=== PATIENT | female | born 1975 | race African-American/Black ===

== ENCOUNTER 2018-07-21 20:19 | Inpatient (IN) ==
[2018-07-21] MEDS ORDERED: Metoprolol Tartrate 25 MG Tablet PO ONE (20:36)
--- NOTE | 2018-07-21 20:54 | XR ---
EXAM DATE: 07/21/2018 8:50 PM EDT AGE/SEX: 43 years / Female INDICATIONS: Chest pain today. CLINICAL DATA: This is the patient's initial encounter. Patient reports that signs and symptoms have been present for 1 day and indicates a pain score of 8/10. MEDICAL/SURGICAL HISTORY: Hypertension. None. COMPARISON: No prior exams available for comparison. FINDINGS: No acute airspace disease or effusion. Minimal basilar atelectasis. Heart size normal. Mildly tortuou s aorta. CONCLUSION: Minimal basilar atelectasis. No consolidation or effusion. Electronically signed by: Aldo De La Paz MD 07/21/2018 8:53 PM EDT
[2018-07-21 21:19] LABS: Baso # (Auto) 0.1 th/mm3 (0.0-0.2); Baso % (Auto) 1.1 % (0.0-2.0); Eos # (Auto) 0.2 th/mm3 (0.0-0.4); Eos % (Auto) 2.2 % (0.0-4.0); Hematocrit 40.4 % (35.0-46.0); Hemoglobin 14.1 gm/dL (11.6-15.3); Lymph # (Auto) 4.2 th/mm3 (1.0-4.8); Lymph % (Auto) 43.2 % (9.0-44.0); Mean Corpuscular HGB Conc 34.9 % (32.0-36.0); Mean Corpuscular Hemoglobin 29.1 pg (27.0-34.0); Mean Corpuscular Volume 83.4 fL (80.0-100.0); Mean Platelet Volume 9.3 fL (7.0-11.0); Mono # (Auto) 0.9 th/mm3 (0.0-0.9); Mono % (Auto) 9.8 % (0.0-8.0); Neut # (Auto) 4.2 th/mm3 (1.8-7.7); Neut % (Auto) 43.7 % (16.0-70.0); Platelet Count 295 th/mm3 (150-450); Red Blood Count 4.85 mil/mm3 (4.00-5.30); Red Cell Distribution Width 14.6 % (11.6-17.2); White Blood Count 9.6 th/mm3 (4.0-11.0)
--- NOTE | 2018-07-21 21:23 | ED ---
HPI General Chief Complaint: Chest Pain Stated Complaint: chest pain/left side pain Time Seen by Provider: 07/21/18 20:28 Source: patient Mode of arrival: ambulatory Limitations: no limitations History of Present Illness HPI narrative: 43-year-old female with PMH of [place], anxiety depression, fibromyalgia, HTN, bipolar presents the ED for evaluation of 2-hour history of left-sided chest pain. Rated 6/10, constant, onset about 2 hours ago while at rest. Patient states the pain is now encompassing her whole left side. This pain she describes is different from her fibromyalgia pain. She endorses accompanying shortness of breath and nausea. She denies palpitations, diaphoresis. She states that she is compliant with her antihypertensives. She states that she had a cardiac catheter 5 or 6 years ago and took an unknown medication for vasospasm for a period of time. She also states that she recently took a bus to [place] and back. She denies any leg pain. She denies oral contraception use. She denies risk of , endorses tubal ligation. 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 No treatment attempted before arrival. Related Data Home Medications Medication Instructions Recorded Confirmed clonidine HCl 0.2 mg PO BID 05/25/18 07/21/18 duloxetine [Cymbalta] 30 mg PO DAILY 05/25/18 07/21/18 lisinopril 40 mg PO DAILY 05/25/18 07/21/18 quetiapine [Seroquel] 600 mg PO HS 05/25/18 07/21/18 gabapentin 100 mg PO BID 07/21/18 07/21/18 gabapentin 600 mg PO HS 07/21/18 07/21/18 methocarbamol 500 mg PO BID 07/21/18 07/21/18 tramadol 100 mg PO Q4-6H PRN 07/21/18 07/21/18 Previous Rx's Medication Instructions Recorded [id number] 1 cap PO Q4-6H PRN #10 cap 05/26/18 [Fiorinal-Codeine #3] Allergies Allergy/AdvReac Type Severity Reaction Status Date / Time sumatriptan [From Imitrex] Allergy Anaphylaxis Verified 07/21/18 20:32 Review of Systems ROS: all other systems reviewed are negative [facility] Medical History Medical History Anxiety (Acute) Depression (Acute) Fibromyalgia (Acute) HTN (hypertension) (Acute) Hx of bipolar disorder (Acute) Migraines (Acute) Surgical History Surgical History History of appendectomy (Acute) History of cholecystectomy (Acute) History of lumpectomy of right breast (Acute) History of tubal ligation (Acute) Social History Social History Substance History: No History of Abuse Second Hand Smoke Exposure: No Smoking Status: Never smoker How Often Do You Have a Drink Containing Alcohol: Monthly or less Recent Travel in [facility] within the Last 8 Weeks: No Recent Out of Country Travel within the Last 8 Weeks: No Immunization History Tetanus Immunization: >5 Years Exam Narrative Exam Narrative: GENERAL: Well-nourished, well-developed -[place] Citizen female no acute distress. SKIN: Focused skin assessment warm/dry. HEAD: Atraumatic. Normocephalic. EYES: Pupils equal and round. No scleral icterus. No injection or drainage. ENT: No nasal bleeding or discharge. Mucous membranes pink and moist. NECK: Trachea midline. No JVD. CARDIOVASCULAR: Regular rate and rhythm. No murmur appreciated. CHEST: Nontender throughout without deformity or crepitus. No retractions. RESPIRATORY: No accessory muscle use. Clear to auscultation. Breath sounds equal bilaterally. GASTROINTESTINAL: Abdomen soft, non-tender, nondistended. Hepatic and splenic margins not palpable. MUSCULOSKELETAL: No obvious deformities. No clubbing. No cyanosis. No edema. NEUROLOGICAL: Awake and alert. No obvious cranial nerve deficits. Motor grossly within normal limits. Normal speech. PSYCHIATRIC: Appropriate mood and affect; insight and judgment normal. Course Initial Documented Vital Signs Temperature 98.7 F 07/21/18 20:20 Pulse Rate 94 H 07/21/18 20:20 Respiratory Rate 18 07/21/18 20:20 Blood Pressure 237/127 H 07/21/18 20:20 Pulse Oximetry 100 07/21/18 20:20 Last Documented Vital Signs Temperature 98.7 F 07/21/18 20:20 Pulse Rate 79 07/22/18 00:23 Respiratory Rate 17 07/22/18 00:23 Blood Pressure 153/82 H 07/22/18 00:23 Pulse Oximetry 97 07/22/18 00:23 Clinical Decision Support HEART Score Questions History: Slightly suspicious EKG: Normal Age: 45-64 years Risk Factors: 3 or more Risk Factors or Hx of Atherosclerotic Disease Initial Troponin: Normal Limit Heart Score HEART Score: 3 Medical Decision Making JESSICA Attestation JESSICA supervised visit: Yes Attestation: I, Dr. Wallace, have reviewed the advance practice practitioner's documentation and am in agreement, met with the patient face to face, made the diagnosis, and the medical decision making was done by me. *My assessment and Findings: Patient is a 43-year-old female who comes in complaining of chest pain and shortness of breath. Exam shows lungs to be clear to auscultation. Patient is very hypertensive on arrival. She is given nitro with some improvement of her blood pressure. Given a beta-abby. Labs sent show negative troponin. MDM Narrative Medical decision making narrative: 43-year-old female with PMH of HTN, [place] presents to the ED for evaluation of left-sided chest pain with associated shortness of breath. She endorses compliance with her daily antihypertensives. BP 237/127 on presentation. Physical exam reveals no focal neuro deficits, no reproducible tenderness of the chest, no appreciable M/R/G, breath sounds clear and equal bilaterally. IV was established. Patient was administered a dose of metoprolol, aspirin, sublingual nitro x2. On recheck blood pressure still elevated, no improvement of the pain. EKG without acute findings. CXR without acute findings. Troponin negative x1. D-dimer 0.5. Patient was administered 4 mg morphine, still no improvement of the blood pressure. CT the brain without acute findings. She continued to complain of pain and was administered a second dose of 4 mg morphine. The patient was administered 5 mg Lopressor, 10 mg hydralazine, BP 153/82 on recheck. Patient states headache is resolved, chest pain improved. She is allergic to iodine, VQ scan ordered and pending. Plan to admit to rule out ACS and PE. Patient's agreeable to this plan. I spoke with who agrees to accept the patient for observation. Please see medicine notes for disposition. Medical Screen Exam Complete: Yes Emergency Medical Condition: Yes Differential Diagnosis Differential Diagnosis: Hypertensive urgency versus angina versus ACS versus fibromyalgia versus other Lab Data Result diagrams: 07/21/18 20:15 07/21/18 20:15 Lab Results 07/21/18 07/21/18 07/21/18 Range/Units 20:15 20:15 20:15 WBC 9.6 (4.0-11.0) th/mm3 RBC 4.85 (4.00-5.30) mil/mm3 Hgb 14.1 (11.6-15.3) gm/dL Hct 40.4 (35.0-46.0) % MCV 83.4 (80.0-100.0) fL MCH 29.1 (27.0-34.0) pg MCHC 34.9 (32.0-36.0) % RDW 14.6 (11.6-17.2) % Plt Count 295 (150-450) th/mm3 MPV 9.3 (7.0-11.0) fL Neut % (Auto) 43.7 (16.0-70.0) % Lymph % (Auto) 43.2 (9.0-44.0) % [place] % (Auto) 9.8 H (0.0-8.0) % Eos % (Auto) 2.2 (0.0-4.0) % Baso % (Auto) 1.1 (0.0-2.0) % Neut # (Auto) 4.2 (1.8-7.7) th/mm3 Lymph # (Auto) 4.2 (1.0-4.8) th/mm3 [place] # (Auto) 0.9 (0.0-0.9) th/mm3 Eos # (Auto) 0.2 (0.0-0.4) th/mm3 Baso # (Auto) 0.1 (0.0-0.2) th/mm3 WBC Differential . Differential Comment Auto diff final D-Dimer Quant (PE/DVT) 0.50 (0.00-0.50) mg/L FEU Sodium (136-145) meq/L Potassium (3.5-5.1) meq/L Chloride (98-107) meq/L Carbon Dioxide (21.0-32.0) meq/L Anion Gap (5-15) meq/L BUN (7-18) mg/dL Creatinine (0.50-1.00) mg/dL Estimated GFR (>89) mL/min Random Glucose (74-106) mg/dL Calcium (8.5-10.1) mg/dL Total Bilirubin (0.2-1.0) mg/dL AST (15-37) U/L ALT (10-53) U/L Alkaline Phosphatase (45-117) U/L Troponin I (0.02-0.05) ng/mL Total Protein (6.4-8.2) g/dL Albumin (3.4-5.0) g/dL Lipase 55 L (73-393) U/L 07/21/18 Range/Units 20:15 WBC (4.0-11.0) th/mm3 RBC (4.00-5.30) mil/mm3 Hgb (11.6-15.3) gm/dL Hct (35.0-46.0) % MCV (80.0-100.0) fL MCH (27.0-34.0) pg MCHC (32.0-36.0) % RDW (11.6-17.2) % Plt Count (150-450) th/mm3 MPV (7.0-11.0) fL Neut % (Auto) (16.0-70.0) % Lymph % (Auto) (9.0-44.0) % [place] % (Auto) (0.0-8.0) % Eos % (Auto) (0.0-4.0) % Baso % (Auto) (0.0-2.0) % Neut # (Auto) (1.8-7.7) th/mm3 Lymph # (Auto) (1.0-4.8) th/mm3 [place] # (Auto) (0.0-0.9) th/mm3 Eos # (Auto) (0.0-0.4) th/mm3 Baso # (Auto) (0.0-0.2) th/mm3 WBC Differential Differential Comment D-Dimer Quant (PE/DVT) (0.00-0.50) mg/L FEU Sodium 138 (136-145) meq/L Potassium 3.9 (3.5-5.1) meq/L Chloride 104 (98-107) meq/L Carbon Dioxide 25.1 (21.0-32.0) meq/L Anion Gap 9 (5-15) meq/L BUN 13 (7-18) mg/dL Creatinine 0.89 (0.50-1.00) mg/dL Estimated GFR 83 L (>89) mL/min Random Glucose 109 H (74-106) mg/dL Calcium 8.6 (8.5-10.1) mg/dL Total Bilirubin 0.2 (0.2-1.0) mg/dL AST 13 L (15-37) U/L ALT 22 (10-53) U/L Alkaline Phosphatase 67 (45-117) U/L Troponin I Less than 0.02 L (0.02-0.05) ng/mL Total Protein 8.5 H (6.4-8.2) g/dL Albumin 3.8 (3.4-5.0) g/dL Lipase (73-393) U/L Imaging Data Radiologist's impression: Chest X-Ray 07/21/18 20:37 CONCLUSION: Minimal basilar atelectasis. No consolidation or effusion. Head CT 07/21/18 23:07 CONCLUSION: 1. Negative noncontrast CT brain. 2. Mild thickening of the dependent sphenoid sinuses. . Discharge Plan Physicians Team ED Provider: Jennifer Wallace ED Midlevel Provider: Radha Shannon Primary Care Provider: Primary Care Hedy Guerrero Rxs /Orders / Referrals /Forms Prescriptions: No Action clonidine HCl 0.2 mg Tablet 0.2 mg PO BID RF: 0 lisinopril 40 mg Tablet 40 mg PO DAILY RF: 0 quetiapine [Seroquel] 200 mg Tablet 600 mg PO HS RF: 0 duloxetine [Cymbalta] 30 mg Capsule,Delayed Release(Dr/Ec) 30 mg PO DAILY RF: 0 [id number]-[id number]-KOE-caff [Fiorinal-Codeine #3] [id number] mg capsule 1 cap PO Q4-6H PRN (Reason: headache) Qty: 10 RF: 0 gabapentin 100 mg Capsule 100 mg PO BID RF: 0 gabapentin 300 mg Capsule 600 mg PO HS RF: 0 methocarbamol 500 mg Tablet 500 mg PO BID RF: 0 tramadol 100 mg Capsule,Er Biphase 24 Hr 25-75 100 mg PO Q4-6H PRN (Reason: Pain) RF: 0 Discharge Interventions Interventions: Vital Signs Last Done: 07/22/18 00:23 Status ED Status: Pending Admission
[2018-07-21 21:26] LABS: Albumin 3.8 g/dL (3.4-5.0); Anion Gap 9 meq/L (5-15); Aspartate Aminotransferase 13 U/L (15-37); Blood Urea Nitrogen 13 mg/dL (7-18); Calcium 8.6 mg/dL (8.5-10.1); Carbon Dioxide 25.1 meq/L (21.0-32.0); Chloride 104 meq/L (98-107); Glomerular Filtration Rate 83 mL/min (>89); Glucose,Random 109 mg/dL (74-106); Potassium 3.9 meq/L (3.5-5.1); Sodium 138 meq/L (136-145)
[2018-07-21 21:31] LABS: Alanine Aminotransferase 22 U/L (10-53); Alkaline Phosphatase 67 U/L (45-117); Total Protein 8.5 g/dL (6.4-8.2)
[2018-07-21] MEDS ORDERED: Morphine Inj 4 MG/ML Vial IV.PUSH ONE ×2 (22:10→23:37)
[2018-07-21] MEDS ORDERED: niCARdipine Inj 25 MG in Sodium Chlor 0.9% Inj 240 ML IV.CONT PRN (23:10)
--- NOTE | 2018-07-21 23:38 | CT ---
EXAM DATE: 07/21/2018 11:29 PM EDT AGE/SEX: 43 years / Female INDICATIONS: Cephalgia. CLINICAL DATA: This is the patient's initial encounter. Patient reports that signs and symptoms have been present for 1 day and indicates a pain score of 6/10. MEDICAL/SURGICAL HISTORY: Hypertension. Tubal ligation. RADIATION DOSE: 56.35 CTDI (mGy) COMPARISON: [facility], CT HEAD W/O CONTRAST, 05/26/2018. . TECHNIQUE: CT of the head without contrast. Using automated exposure control and adjustment of the mA and/or kV according to patient size, radiation dose was kept as low as reasonably achievable to ob tain optimal diagnostic quality images. DICOM format image data is available electronically for revi ew and comparison. FINDINGS: Cerebrum: The ventricles are normal for age. No evidence of midline shift, mass lesion, hemorrhage or acute infarction. No extraaxial fluid collections are seen. Posterior Fossa: The cerebellum and brainstem are intact. The 4th ventricle is midline. The cerebe llopontine angle is unremarkable. Extracranial: The visualized portion of the orbits is intact. There is mild thickening of the depend ent sphenoid sinuses suggesting either a minimal amount of fluid or thickening. Skull: The calvaria is intact. No evidence of skull fracture. CONCLUSION: 1. Negative noncontrast CT brain. 2. Mild thickening of the dependent sphenoid sinuses. . Electronically signed by: Bayron Morris MD 07/21/2018 11:36 PM EDT
[2018-07-21] MEDS: niCARdipine Inj 25 MG in Sodium Chlor 0.9% Inj 240 ML IV.CONT STA (23:43)
--- NOTE | 2018-07-21 23:48 | P.HPIM ---
History of Present Illness Primary Care Physician: No Primary Care Physician History of Present Illness: This is a 43-year-old female with a PMH of Anxiety, Depression, Fibromyalgia, Bipolar Disorder and HTN who presented to the ER with complaints of chest pain x2 hrs prior to arrival. Notes similar symptoms in 2011, at that time underwent Cardiac Cath and told she had "spasm", reports intermittent episodes of chest pain throughout the years, but now persistent over the past few hours. Denies fever, chills, cough or SOB. No sick contacts. Pain is substernal, moderate to severe, 9/10, non-radiating, associated w/ frontal headache. On arrival, noted to be significantly hypertensive w/ BP 237/127, HR 94. On Clonidine 0.2mg bid and Lisinopril 40mg qd, reports compliance w/ medications, HTN normally well controlled in the 140's systolic. S/p Metoprolol 25mg PO x1, NTG x2 and Morphine in ER w/ minimal improvement, BP 249/121, HR 59. CBC unremarkable. Chemistry essentially unremarkable except for GFR 83. Troponin negative. D-dimer 0.50. CXR with no acute findings. CT Head negative. - Diagnosis (1) Chest pain (2) Hypertensive urgency Review of Systems PAST FAMILY HISTORY: Reviewed. No h/o DM or CAD All other systems reviewed negative except as stated in HPI [facility] - History History Provided By: Patient - Medical History Medical History: Medical History (Last Reviewed 07/21/18 @ 21:23 by JONI Maxwell) Migraines Anxiety Depression Fibromyalgia HTN (hypertension) Hx of bipolar disorder - Surgical History Surgical History: Surgical History (Last Reviewed 07/21/18 @ 21:23 by JONI Maxwell) History of appendectomy History of cholecystectomy History of lumpectomy of right breast History of tubal ligation - Tobacco History Second Hand Smoke Exposure: No Tobacco Use In Past 30 Days: No Smoking Status: Never smoker - Alcohol History How Often Do You Have a Drink Containing Alcohol: Monthly or less - Substance Use History Substance History: No History of Abuse - Travel History Recent Travel in the [place] Within the Last 8 Weeks: No Recent Travel Out of the Country Within the Last 8 Weeks: No - Immunization History Tetanus Immunization: >5 Years Medications and Allergies Active Medications: Active Medications Nicardipine HCl 25 mg/ Sodium (Chloride) 250 mls @ 50 mls/hr IV.CONT TITRATE STA; Protocol Stop: 07/22/18 04:31 Last Admin: 07/21/18 23:43 Dose: 5 mg/hr, 50 mls/hr Sodium Chloride (Ns Flush) 2 ml IV.FLUSH UNSCH PRN PRN Reason: FLUSH AFTER USING IV ACCESS Allergies Allergy/AdvReac Type Severity Reaction Status Date / Time sumatriptan [From Imitrex] Allergy Anaphylaxis Verified 07/21/18 20:32 Home Medications Medication Instructions Recorded Confirmed Type clonidine HCl 0.2 mg PO BID 05/25/18 07/21/18 History duloxetine [Cymbalta] 30 mg PO DAILY 05/25/18 07/21/18 History lisinopril 40 mg PO DAILY 05/25/18 07/21/18 History quetiapine [Seroquel] 600 mg PO HS 05/25/18 07/21/18 History gabapentin 100 mg PO BID 07/21/18 07/21/18 History gabapentin 600 mg PO HS 07/21/18 07/21/18 History methocarbamol 500 mg PO BID 07/21/18 07/21/18 History tramadol 100 mg PO Q4-6H PRN 07/21/18 07/21/18 History Exam Vital signs: Vital Signs 07/21/18 20:20 07/21/18 20:31 07/21/18 21:05 Temperature 98.7 F Pulse Rate 94 H 97 H 76 Respiratory Rate 18 14 17 Blood Pressure 237/127 H 219/128 H 178/106 H Pulse Oximetry 100 99 98 07/21/18 21:52 07/21/18 22:00 07/21/18 23:14 Temperature Pulse Rate 73 59 L Respiratory Rate 14 17 Blood Pressure 189/124 H 249/121 H Pulse Oximetry 98 99 100 Intake & Output 07/21/18 07/21/18 07/22/18 06:59 18:59 06:59 Weight 78.925 kg Narrative: PE: GENERAL: Extremely pleasant young black female in no acute distress. SKIN: Focused skin assessment warm and dry. HEENT: PERRLA, EOMI. No scleral icterus or conjunctival pallor. No lid lag or facial droop. CARDIOVASCULAR: Regular rate and rhythm. No obvious murmurs to auscultation. No chest tenderness to palpation. RESPIRATORY: No obvious rhonchi or wheezing. Clear to auscultation. Breath sounds equal bilaterally. GASTROINTESTINAL: Abdomen soft, non-tender, nondistended. BS normal. MUSCULOSKELETAL: Extremities without clubbing, cyanosis, or edema. No obvious deformities. NEUROLOGICAL: Awake, alert and oriented x4. No focal neurologic deficits. Moving both upper and lower extremities spontaneously. PSYCHIATRIC: Appropriate mood and affect. Insight and judgment normal. Results - Labs CBC & Chem 7: 07/21/18 20:15 07/21/18 20:15 Labs: Short CBC 07/21/18 Range/Units 20:15 WBC 9.6 (4.0-11.0) th/mm3 Hgb 14.1 (11.6-15.3) gm/dL Hct 40.4 (35.0-46.0) % Plt Count 295 (150-450) th/mm3 BMP 07/21/18 20:15 Sodium 138 Potassium 3.9 Chloride 104 Carbon Dioxide 25.1 BUN 13 Creatinine 0.89 Calcium 8.6 Cardiac Enzymes 07/21/18 Range/Units 20:15 Troponin I Less than 0.02 L (0.02-0.05) ng/mL Liver Function 07/21/18 Range/Units 20:15 Total Bilirubin 0.2 (0.2-1.0) mg/dL AST 13 L (15-37) U/L ALT 22 (10-53) U/L Alkaline Phosphatase 67 (45-117) U/L Albumin 3.8 (3.4-5.0) g/dL - Imaging Impressions Chest X-Ray 07/21/18 20:37 CONCLUSION: Minimal basilar atelectasis. No consolidation or effusion. Head CT 07/21/18 23:07 CONCLUSION: 1. Negative noncontrast CT brain. 2. Mild thickening of the dependent sphenoid sinuses. . Caprini VTE Risk Assessment Caprini VTE Risk Assessment: No/Low Risk (score <= 1) Caprini Risk Assessment Model: Point Value = 1 Point Value = 2 Point Value = 3 Point Value = 5 Age 41-60 Minor surgery BMI > 25 kg/m2 Swollen legs Varicose veins or History of unexplained or recurrent spontaneous Oral contraceptives or hormone replacement Sepsis (< 1 month) Serious lung disease, including pneumonia (< 1 month) Abnormal pulmonary function Acute myocardial infarction Congestive heart failure (< 1 month) History of inflammatory bowel disease Medical patient at bed rest Age 61-74 Arthroscopic surgery Major open surgery (> 45 min) Laparoscopic surgery (> 45 min) Malignancy Confined to bed (> 72 hours) Immobilizing plaster cast Central venous access Age >= 75 History of VTE Family history of VTE Factor V Leiden Prothrombin [id number] Lupus anticoagulant Anticardiolipin antibodies Elevated serum homocysteine Heparin-induced thrombocytopenia Other congenital or acquired thrombophilia Stroke (< 1 month) Elective arthroplasty Hip, pelvis, or leg fracture Acute spinal cord injury (< 1 month) Prophylaxis Regimen: Total Risk Factor Score Risk Level Prophylaxis Regimen 0-1 Low Early ambulation 2 Moderate Order ONE of the following: *Sequential Compression Device (SCD) *Heparin 5000 units SQ BID 3-4 Higher Order ONE of the following medications: *Heparin 5000 units SQ TID *Enoxaparin/Lovenox 40 mg SQ daily (WT < 150 kg, CrCl > 30 mL/min) *Enoxaparin/Lovenox 30 mg SQ daily (WT < 150 kg, CrCl > 10-29 mL/min) *Enoxaparin/Lovenox 30 mg SQ BID (WT < 150 kg, CrCl > 30 mL/min) AND/OR *Sequential Compression Device (SCD) 5 or more Highest Order ONE of the following medications: *Heparin 5000 units SQ TID (Preferred with Epidurals) *Enoxaparin/Lovenox 40 mg SQ daily (WT < 150 kg, CrCl > 30 mL/min) *Enoxaparin/Lovenox 30 mg SQ daily (WT < 150 kg, CrCl > 10-29 mL/min) *Enoxaparin/Lovenox 30 mg SQ BID (WT < 150 kg, CrCl > 30 mL/min) AND *Sequential Compression Device (SCD) Assessment and Plan - Assessment (1) Chest pain Code(s): R07.9 - Chest pain, unspecified Status: Acute (2) Hypertensive urgency Code(s): I16.0 - Hypertensive urgency Status: Acute - Plan A/P: 1. Hypertensive Urgency: BP 230's on arrival, on Clonidine 0.2mg bid and Lisinopril 40mg qd, compliant w/ medications. S/p Metoprolol 25mg po x1, NTG x2 and Morphine w/ minimal improvement, recommend to hold Cardene for now, s/p IV Hydralazine/Lopressor w/ significant improvement in BP, currently 150's, pt feeling much better. Resume home medications, monitor BP closely, antihypertensives as needed for BP >180. 2. Chest Pain: likely secondary to above, s/p Cardiac Cath for "small myocardial infarct" in 2011, told she had "spasm", does not know if she had stent placed. Initial trop negative, check serial cardiac enzymes, lipid profile/Hgb A1c, start ASA/Statin. Consult Cardiology if needed. 3. DVT Prophylaxis: SCD/Teds 4. Social work for d/c planning as needed. 5. Case discussed w/ ER physician at length, labs/records/imaging reviewed by me.
[2018-07-21] MEDS ORDERED: hydrALAZINE HCl Inj 20 MG/ML Vial IV.PUSH ONE (23:50)
[2018-07-21] MEDS ORDERED: Metoprolol Inj 5 MG/5 ML Vial IV.PUSH STA (23:50)
[2018-07-22] MEDS: niCARdipine Inj 25 MG in Sodium Chlor 0.9% Inj 240 ML IV.CONT STA (00:33)
[2018-07-22] MEDS ORDERED: Bisacodyl 10 MG Supp RECTAL PRN (00:57)
[2018-07-22] MEDS ORDERED: Acetaminophen 325 MG Tablet PO PRN (00:57)
[2018-07-22] MEDS: hydrALAZINE HCl Inj 20 MG/ML Vial IV.PUSH PRN ×3 (03:45→17:40)
[2018-07-22] MEDS: Morphine Inj 4 MG/ML Vial IV.PUSH PRN ×2 (04:45→13:37)
[2018-07-22] MEDS: Lisinopril 20 MG Tablet PO SCH (08:21)
[2018-07-22] MEDS: Gabapentin 100 MG Capsule PO SCH ×2 (08:21→20:59)
[2018-07-22] MEDS: Senna/Docusate Sodium 8.6/50 MG Tablet PO SCH ×2 (08:23→20:59)
[2018-07-22 10:22] LABS: Cholesterol 219 mg/dL (120-200)
[2018-07-22 10:25] LABS: Chol/HDL Ratio 2.94 Ratio; HDL Cholesterol 74.4 mg/dL (40.0-60.0); LDL Cholesterol,Calculated 122 mg/dL (0-99); Triglycerides 111 mg/dL (42-150)
--- NOTE | 2018-07-22 10:27 | NM ---
EXAM DATE: 07/22/2018 10:23 AM EDT AGE/SEX: 43 years / Female INDICATIONS: Left chest pain with dyspnea, diaphoresis, nausea and vomiting. CLINICAL DATA: This is the patient's initial encounter. Patient reports that signs and symptoms have been present for 1 day and indicates a pain score of 6/10. MEDICAL/SURGICAL HISTORY: Myocardial infarction. Hypertension. Appendectomy. Cholecystectomy. Tubal ligation. COMPARISON: [facility], CHEST 1V SINGLE AP, 07/21/2018. . DOSE: 0.8 mCi Tc99m DTPA aerosol 8.7 mCi Tc99m MAA IV TECHNIQUE: Following five minutes of tidal breathing of DTPA aerosol, planar images of the lungs wer e performed in eight projections. The patient was then injected with MAA, and eight-view perfusion s can was performed. FINDINGS: There is a homogeneous pattern of aerosol delivery to the periphery of both lungs. No focal ventilat ory defects are seen. The perfusion lung scan demonstrates a homogenous pattern of uptake in both lungs. No segmental or s ubsegmental defects are seen. CONCLUSION: 1. Negative examination. Electronically signed by: Aldo De La Paz MD 07/22/2018 10:26 AM EDT
--- NOTE | 2018-07-22 15:30 | P.PN ---
Subjective Interval history: This is a pleasant 43 y/o Female with Anxiety disorder, depression, Fibromyalgia , Bipolar disorder, Hypertension, who came to ER with Chest pain her Troponin has been stable while this hospitalization her V/Q scan negative, but she continue with Chest pain will ask for cardiology consult, she had Cardiac Cath in the past, she was told she had a spasm, On arrival, noted to be significantly hypertensive w/ BP 237/127, HR 94. On Clonidine 0.2mg bid and Lisinopril 40mg qd, reports compliance w/ medications, at this time continue with Chest pain, Hypertensive Emergency improving with Vasotec IV. asked for audio specialist consult, started on Carafate and Famotidine. continue liquid diet. Physical Exam Vital signs: Vital Signs 07/21/18 20:20 07/21/18 20:31 07/21/18 21:05 Temperature 98.7 F Pulse Rate 94 H 97 H 76 Respiratory Rate 18 14 17 Blood Pressure 237/127 H 219/128 H 178/106 H Pulse Oximetry 100 99 98 07/21/18 21:52 07/21/18 22:00 07/21/18 23:14 Temperature Pulse Rate 73 59 L Respiratory Rate 14 17 Blood Pressure 189/124 H 249/121 H Pulse Oximetry 98 99 100 07/21/18 23:45 07/22/18 00:23 07/22/18 01:07 Temperature Pulse Rate 81 79 78 Respiratory Rate 17 17 14 Blood Pressure 191/107 H 153/82 H 164/97 H Pulse Oximetry 99 97 100 07/22/18 02:00 07/22/18 02:15 07/22/18 03:00 Temperature 98.2 F Pulse Rate 75 72 78 Respiratory Rate 18 Blood Pressure 191/112 H Pulse Oximetry 100 07/22/18 04:00 07/22/18 04:10 07/22/18 04:48 Temperature 98.2 F Pulse Rate 90 93 H Respiratory Rate 18 18 Blood Pressure 181/110 H 148/88 H Pulse Oximetry 100 07/22/18 05:00 07/22/18 06:00 07/22/18 07:00 Temperature Pulse Rate 94 H 81 93 H Respiratory Rate Blood Pressure Pulse Oximetry 07/22/18 08:00 07/22/18 09:00 07/22/18 09:05 Temperature 98.3 F Pulse Rate 104 H 86 Respiratory Rate 18 18 Blood Pressure 141/95 H Pulse Oximetry 97 07/22/18 10:00 07/22/18 11:00 07/22/18 12:00 Temperature 98.3 F Pulse Rate 94 H 89 99 H Respiratory Rate 18 Blood Pressure 172/107 H Pulse Oximetry 96 07/22/18 13:00 07/22/18 13:32 07/22/18 13:33 Temperature Pulse Rate 140 H Respiratory Rate Blood Pressure 178/113 H 198/114 H Pulse Oximetry 07/22/18 13:34 07/22/18 13:39 07/22/18 13:44 Temperature Pulse Rate Respiratory Rate Blood Pressure 169/110 H 166/114 H 194/116 H Pulse Oximetry 07/22/18 13:45 07/22/18 13:48 07/22/18 13:50 Temperature Pulse Rate Respiratory Rate 20 Blood Pressure 197/108 H 168/95 H Pulse Oximetry 07/22/18 13:55 07/22/18 14:00 07/22/18 14:54 Temperature Pulse Rate 100 H Respiratory Rate Blood Pressure 159/94 H Pulse Oximetry 96 Intake & Output 07/21/18 07/22/18 07/22/18 18:59 06:59 18:59 Intake Total 240 / 240 Output Total 1600 / 1600 Balance -1360 / -1360 Weight 72.6 kg Intake: Oral 240 / 240 Output: Urine 1600 / 1600 Other: Date of Last Bowel Movement 07/21/18 Weight On Admission 75.75 kg Narrative: GENERAL: Moderate distress due to chest pain and vomit. SKIN: Focused skin assessment warm and dry. HEENT: PERRLA, EOMI. No scleral icterus or conjunctival pallor. No lid lag or facial droop. CARDIOVASCULAR: Regular rate and rhythm. No obvious murmurs to auscultation. No chest tenderness to palpation. RESPIRATORY: No obvious rhonchi or wheezing. Clear to auscultation. Breath sounds equal bilaterally. GASTROINTESTINAL: Abdomen soft, non-tender, nondistended. BS normal. MUSCULOSKELETAL: Extremities without clubbing, cyanosis, or edema. No obvious deformities. NEUROLOGICAL: Awake, alert and oriented x4. No focal neurologic deficits. Moving both upper and lower extremities spontaneously. PSYCHIATRIC: Appropriate mood and affect. Insight and judgment normal. Results - Labs CBC & Chem 7: 07/21/18 20:15 10/25/18 20:15 Laboratory Results - last 24 hr 07/21/18 07/21/18 07/21/18 20:15 20:15 20:15 WBC 9.6 RBC 4.85 Hgb 14.1 Hct 40.4 MCV 83.4 MCH 29.1 MCHC 34.9 RDW 14.6 Plt Count 295 MPV 9.3 Neut % (Auto) 43.7 Lymph % (Auto) 43.2 Haakon % (Auto) 9.8 H Eos % (Auto) 2.2 Baso % (Auto) 1.1 Neut # (Auto) 4.2 Lymph # (Auto) 4.2 Haakon # (Auto) 0.9 Eos # (Auto) 0.2 Baso # (Auto) 0.1 WBC Differential . Differential Comment Auto diff final D-Dimer Quant (PE/DVT) 0.50 Sodium Potassium Chloride Carbon Dioxide Anion Gap BUN Creatinine Estimated GFR Random Glucose Calcium Total Bilirubin AST ALT Alkaline Phosphatase Troponin I Total Protein Albumin Triglycerides Cholesterol LDL Cholesterol, Calc HDL Cholesterol Cholesterol/HDL Ratio Lipase 55 L 07/21/18 07/22/18 07/22/18 20:15 01:42 09:30 WBC RBC Hgb Hct MCV MCH MCHC RDW Plt Count MPV Neut % (Auto) Lymph % (Auto) Haakon % (Auto) Eos % (Auto) Baso % (Auto) Neut # (Auto) Lymph # (Auto) Haakon # (Auto) Eos # (Auto) Baso # (Auto) WBC Differential Differential Comment D-Dimer Quant (PE/DVT) Sodium 138 Potassium 3.9 Chloride 104 Carbon Dioxide 25.1 Anion Gap 9 BUN 13 Creatinine 0.89 Estimated GFR 83 L Random Glucose 109 H Calcium 8.6 Total Bilirubin 0.2 AST 13 L ALT 22 Alkaline Phosphatase 67 Troponin I Less than 0.02 L Less than 0.02 L Less than 0.02 L Total Protein 8.5 H Albumin 3.8 Triglycerides 111 Cholesterol 219 H LDL Cholesterol, Calc 122 H HDL Cholesterol 74.4 H Cholesterol/HDL Ratio 2.94 Lipase - Imaging Impressions Chest X-Ray 07/21/18 20:37 CONCLUSION: Minimal basilar atelectasis. No consolidation or effusion. Head CT 07/21/18 23:07 CONCLUSION: 1. Negative noncontrast CT brain. 2. Mild thickening of the dependent sphenoid sinuses. . Pulmonary Perfusion Imaging 07/22/18 23:31 CONCLUSION: 1. Negative examination. - Procedures None Assessment and Plan - Assessment (1) Chest pain Code(s): R07.9 - Chest pain, unspecified Status: Acute (2) Hypertensive urgency Code(s): I16.0 - Hypertensive urgency Status: Acute - Plan 1. Hypertensive Urgency: BP 230's on arrival, on Clonidine 0.2mg bid and Lisinopril 40mg qd, compliant w/ medications. S/p Metoprolol 25mg po x1, NTG x2 and Morphine w/ minimal improvement, recommend to hold Cardene for now, s/p IV Hydralazine/Lopressor w/ significant improvement in BP, currently 150's, pt feeling much better. recommended to continue Home medicines. at this time added Vasotec she was vomiting earlier I think was not receiving her dosages of medicines. on Hydralazine and Vasotec PRN. 2. Atypical Chest pain, s/p Cardiac Cath for "small myocardial infarct" in 2011 , told she had "spasm", does not know if she had stent placed. troponin negative all sets, V/Q scan negative, consulted audio specialist. 3. Acute Gastritis suspected Famotidine and Carafate. DVT Prophylaxis: Heparin Code Status: Full code. Discussed Condition With: Patient and nurse Miss Cotto present with me all the time while I examined the patient. Discharge Planning: not yet cleared for discharge.
[2018-07-22] MEDS: Famotidine PF Inj 20 MG/2 ML Vial IV.PUSH SCH (15:35)
[2018-07-22] MEDS: Methocarbamol 500 MG Tablet PO SCH ×2 (15:35→21:01)
[2018-07-22] MEDS: Sucralfate 1 GM Tablet PO SCH ×2 (16:51→20:59)
[2018-07-22 17:30] LABS: Hemoglobin A1c 5.5 % (4.3-6.0)
[2018-07-22] MEDS: Sod Chloride 0.9% Inj 1,000 ML IV.SIG SCH (18:54)
[2018-07-22] MEDS: Gabapentin 300 MG Capsule PO SCH (20:59)
[2018-07-23] MEDS: Famotidine PF Inj 20 MG/2 ML Vial IV.PUSH SCH ×2 (03:18→15:34)
[2018-07-23] MEDS: Sod Chloride 0.9% Inj 1,000 ML IV.SIG SCH ×2 (04:58→14:19)
[2018-07-23 07:53] LABS: Albumin 3.4 g/dL (3.4-5.0); Anion Gap 9 meq/L (5-15); Aspartate Aminotransferase 25 U/L (15-37); Blood Urea Nitrogen 17 mg/dL (7-18); Calcium 8.6 mg/dL (8.5-10.1); Chloride 104 meq/L (98-107); Glomerular Filtration Rate 62 mL/min (>89); Glucose,Random 107 mg/dL (74-106); Potassium 3.8 meq/L (3.5-5.1); Sodium 137 meq/L (136-145)
[2018-07-23 07:56] LABS: Alanine Aminotransferase 43 U/L (10-53); Alkaline Phosphatase 64 U/L (45-117); Total Protein 7.5 g/dL (6.4-8.2)
[2018-07-23] MEDS: Methocarbamol 500 MG Tablet PO SCH ×2 (08:17→20:34)
[2018-07-23] MEDS: Sucralfate 1 GM Tablet PO SCH ×4 (08:17→20:33)
[2018-07-23] MEDS: Lisinopril 20 MG Tablet PO SCH (08:17)
[2018-07-23] MEDS: Senna/Docusate Sodium 8.6/50 MG Tablet PO SCH ×2 (08:18→20:33)
[2018-07-23] MEDS: Gabapentin 100 MG Capsule PO SCH ×2 (08:18→20:34)
--- NOTE | 2018-07-23 09:10 | P.PN ---
Subjective Interval history: This is a pleasant 43 y/o Female with Anxiety disorder, depression, Fibromyalgia , Bipolar disorder, Hypertension, who came to ER with Chest pain her Troponin has been stable while this hospitalization her V/Q scan negative, but she continue with Chest pain will ask for cardiology consult, she had Cardiac Cath in the past, she was told she had a spasm, On arrival, noted to be significantly hypertensive w/ BP 237/127, HR 94. On Clonidine 0.2mg bid and Lisinopril 40mg qd, reports compliance w/ medications, at this time continue with Chest pain, Hypertensive Emergency improving with Vasotec IV. asked for equipment application specialist consult, started on Carafate and Famotidine. continue liquid diet. 07/23: Seen in her bedroom, she was already evaluated by equipment application specialist not impressed about the possibility or Cardiac disease but asked for Stress test. Seen by GI specialist due to nausea and vomit not improving, studying for probable EGD in am tomorrow. Physical Exam Vital signs: Vital Signs 07/22/18 10:00 07/22/18 11:00 07/22/18 12:00 Temperature 98.3 F Pulse Rate 94 H 89 99 H Respiratory Rate 18 Blood Pressure 172/107 H Pulse Oximetry 96 07/22/18 13:00 07/22/18 13:32 07/22/18 13:33 Temperature Pulse Rate 140 H Respiratory Rate Blood Pressure 178/113 H 198/114 H Pulse Oximetry 07/22/18 13:34 07/22/18 13:39 07/22/18 13:44 Temperature Pulse Rate Respiratory Rate Blood Pressure 169/110 H 166/114 H 194/116 H Pulse Oximetry 07/22/18 13:45 07/22/18 13:48 07/22/18 13:50 Temperature Pulse Rate Respiratory Rate 20 Blood Pressure 197/108 H 168/95 H Pulse Oximetry 07/22/18 13:55 07/22/18 14:00 07/22/18 14:54 Temperature Pulse Rate 100 H Respiratory Rate Blood Pressure 159/94 H Pulse Oximetry 96 07/22/18 15:00 07/22/18 16:00 07/22/18 17:00 Temperature 98.2 F Pulse Rate 92 H 91 H 103 H Respiratory Rate 18 Blood Pressure 147/93 H Pulse Oximetry 97 07/22/18 17:38 07/22/18 18:00 07/22/18 18:23 Temperature Pulse Rate 107 H Respiratory Rate Blood Pressure 160/110 H 178/107 H Pulse Oximetry 07/22/18 19:00 07/22/18 20:00 07/22/18 21:00 Temperature 98.2 F Pulse Rate 90 99 H 95 H Respiratory Rate 18 Blood Pressure 154/93 H Pulse Oximetry 97 07/22/18 22:00 07/22/18 23:00 07/23/18 00:00 Temperature 99 F Pulse Rate 96 H 93 H 95 H Respiratory Rate 18 Blood Pressure 126/66 Pulse Oximetry 96 07/23/18 01:00 07/23/18 02:00 07/23/18 03:00 Temperature Pulse Rate 90 88 93 H Respiratory Rate Blood Pressure Pulse Oximetry 07/23/18 03:53 07/23/18 03:54 07/23/18 05:00 Temperature 98.2 F Pulse Rate 89 89 88 Respiratory Rate 18 Blood Pressure 117/77 Pulse Oximetry 97 07/23/18 06:00 07/23/18 07:00 07/23/18 07:28 Temperature Pulse Rate 91 H 76 77 Respiratory Rate Blood Pressure Pulse Oximetry Intake & Output 07/22/18 07/23/18 07/23/18 18:59 06:59 18:59 Intake Total 250 / 250 1250 / 1250 Output Total 800 / 800 Balance 250 / 250 450 / 450 Weight 71.9 kg Intake: IV 1000 / 1000 NS Inj 1,000 ML @ 100 mls/hr IV 1000 / 1000 .SIG .Q10H DANIA Rx#:[id number] Oral 250 / 250 250 / 250 Output: Urine 800 / 800 Other: # Voids 1 # Bowel Movements 0 Narrative: GENERAL: No acute distress. SKIN: Focused skin assessment warm and dry. HEENT: PERRLA, EOMI. No scleral icterus or conjunctival pallor. No lid lag or facial droop. CARDIOVASCULAR: Regular rate and rhythm. No obvious murmurs to auscultation. No chest tenderness to palpation. RESPIRATORY: No obvious rhonchi or wheezing. Clear to auscultation. Breath sounds equal bilaterally. GASTROINTESTINAL: Abdomen soft, non-tender, nondistended. BS normal. MUSCULOSKELETAL: Extremities without clubbing, cyanosis, or edema. No obvious deformities. NEUROLOGICAL: Awake, alert and oriented x4. No focal neurologic deficits. Moving both upper and lower extremities spontaneously. PSYCHIATRIC: Appropriate mood and affect. Insight and judgment normal. Results - Labs CBC & Chem 7: 07/23/18 09:28 07/23/18 06:25 Laboratory Results - last 24 hr 07/22/18 07/22/18 07/23/18 09:30 09:30 06:25 Sodium 137 Potassium 3.8 Chloride 104 Carbon Dioxide 24.0 Anion Gap 9 BUN 17 Creatinine 1.14 H Estimated GFR 62 L Random Glucose 107 H Hemoglobin A1c 5.5 Calcium 8.6 Total Bilirubin 0.6 AST 25 ALT 43 Alkaline Phosphatase 64 Troponin I Less than 0.02 L Total Protein 7.5 D Albumin 3.4 Triglycerides 111 Cholesterol 219 H LDL Cholesterol, Calc 122 H HDL Cholesterol 74.4 H Cholesterol/HDL Ratio 2.94 - Imaging Impressions Pulmonary Perfusion Imaging 07/22/18 23:31 CONCLUSION: 1. Negative examination. - Procedures None Assessment and Plan - Assessment (1) Chest pain Code(s): R07.9 - Chest pain, unspecified Status: Acute (2) Hypertensive urgency Code(s): I16.0 - Hypertensive urgency Status: Acute - Plan 1. Hypertensive Urgency: BP 230's on arrival, on Clonidine 0.2mg bid and Lisinopril 40mg qd, compliant w/ medications. S/p Metoprolol 25mg po x1, NTG x2 and Morphine w/ minimal improvement, recommend to hold Cardene for now, s/p IV Hydralazine/Lopressor w/ significant improvement in BP, currently 150's, pt feeling much better. recommended to continue Home medicines. at this time added Vasotec she was vomiting earlier I think was not receiving her dosages of medicines. on Hydralazine and Vasotec PRN. Improving. 2. Atypical Chest pain, s/p Cardiac Cath for "small myocardial infarct" in 2011 , told she had "spasm", does not know if she had stent placed. troponin negative all sets, V/Q scan negative, equipment application specialist following not impressed for Cardiac disease but asked for Stress test 3. Acute Gastritis suspected Famotidine and Carafate. probable EGD by GI specialist 4. Anxiety and Depression, Bipolar disorder asked for Psychiatry specialist consult due to Lethargic condition during the afternoon removed Ativan DVT Prophylaxis: Heparin Code Status: Full Code. Discussed Condition With: Patient and Nurse Miss Grover Discharge Planning: not yet cleared for discharge.
[2018-07-23 10:10] LABS: Baso % (Auto) 0.5 % (0.0-2.0); Eos # (Auto) 0.1 th/mm3 (0.0-0.4); Eos % (Auto) 1.1 % (0.0-4.0); Hematocrit 37.3 % (35.0-46.0); Lymph # (Auto) 2.6 th/mm3 (1.0-4.8); Lymph % (Auto) 41.3 % (9.0-44.0); Mean Corpuscular HGB Conc 34.8 % (32.0-36.0); Mean Corpuscular Hemoglobin 28.9 pg (27.0-34.0); Mean Corpuscular Volume 83.2 fL (80.0-100.0); Mean Platelet Volume 8.7 fL (7.0-11.0); Mono # (Auto) 0.5 th/mm3 (0.0-0.9); Mono % (Auto) 8.2 % (0.0-8.0); Neut # (Auto) 3.1 th/mm3 (1.8-7.7); Neut % (Auto) 48.9 % (16.0-70.0); Platelet Count 283 th/mm3 (150-450); Red Blood Count 4.49 mil/mm3 (4.00-5.30); Red Cell Distribution Width 14.8 % (11.6-17.2); White Blood Count 6.4 th/mm3 (4.0-11.0)
--- NOTE | 2018-07-23 11:02 | MB ---
cc: Elvia Thompson MD DATE: 07/23/2018 REASON FOR CONSULTATION: Chest pain. HISTORY OF PRESENT ILLNESS: Ms. Ascencio is a 43-year-old lady who does have a history of bipolar disorder, fibromyalgia, anxiety, and hypertension. She also reports a history of coronary spasm diagnosed by a cardiac catheterization back [place]. She indicates that she did not have any stress testing prior to the cardiac catheterization. She also indicates that she was placed on some medication for that. Since that time, she has done fairly well. Yesterday, she had some nausea, vomiting, a severe migraine and subsequent chest pain. On arrival, her systolic blood pressure was up over 200. She reports her blood pressure is normally well controlled and she is not sure if the spike was secondary to her severe head pain. Today, she is chest pain free. She still does have a low-level headache at this point. PAST MEDICAL HISTORY: As per the HPI, also including anxiety, depression, fibromyalgia. PAST SURGICAL HISTORY: Includes appendectomy, cholecystectomy, lumpectomy, tubal ligation. SOCIAL HISTORY: The patient does not smoke. REVIEW OF SYSTEMS: Except as mentioned in the HPI, all 12 systems are negative. PHYSICAL EXAMINATION: CURRENT VITAL SIGNS: 98.2, 18, 117/77. GENERAL: She is a well-appearing female, who is in no apparent distress. NECK: Free from JVD. LUNGS: Bilaterally clear to auscultation. CARDIOVASCULAR: She has a normal S1 and S2. I did not appreciate any murmurs, rubs or gallops. ABDOMEN: Soft. EXTREMITIES: Free from edema. LABORATORY DATA: Significant for a D-dimer of 0.5. Her serial troponins are less than 0.02. V/Q scan from 07/22/2018 was negative for PE. EKG shows normal sinus rhythm. IMPRESSION: 1. Atypical chest pain. The patient certainly has a history of the same with coronary spasm diagnosed by catheterization in 2011. She is not on appropriate therapy for coronary spasm, which typically includes calcium channel blockers such as Cardizem. Additionally, it has been several years since her catheterization. We do not have access to see if there was any minor coronary artery disease. In light of this, I would like to try and pursue exercise treadmill testing this afternoon as she has had a couple ounces of fruit this morning. If the study is nonischemic, it would be reasonable for her to be discharged home from a cardiovascular perspective. 2. Hypertension. Her blood pressure was certainly quite high when she came in. She does report that she has been compliant. I would continue the lisinopril as she has been on this for quite some time. I would avoid any beta blockers secondary to her history of depression. If she has further elevations, I would consider a calcium channel abby to assist with her coronary spasm. 3. Migraine. This is being managed by the primary team. It does appear at this point; however, that the migraine was the precipitant of the nausea, vomiting and her hypertension. It is likely also the cause of her chest pain. Addendum: EET complete and is not ischemic MD CHET Huynh/yuan , 09:13 AM , 09:23 AM NEAL
--- NOTE | 2018-07-23 12:37 | TR ---
Date Performed: 07/23/2018 Time Performed: 12:11:05 DOCTOR: Kashif Peters DRUG LIST: CLINICAL HISTORY: REASON FOR TEST: Chest pain REASON FOR ENDING: OBSERVATION: CONCLUSION: STU PROTOCOL. NO CP. TEST STOPPED AFTER EXCEEDING GOAL HR SECONDARY TO SOB AND LEG FATIGUE.Maximum AU=775 % Max HR Achieved=87.0% Maximum CJ=888/90 Total Exercise Time=7:31 COMMENTS: upsloping ST segment changes only.Conclusion: Normal treadmill exercise. No evidence of ischemia.
--- NOTE | 2018-07-23 13:50 | P.CONGI ---
History of Present Illness Consult date: 07/23/08 Consult reason: Uncontrolled vomiting Chief complaint: Chest Pain, Hypertension History of Present Illness: This is a 43-year-old female who came into the hospital for evaluation on 2017 with chest pain. Patient is presently being worked up per cardiology, negative troponin so far. Patient also notes some symptoms of GERD/reflux symptoms off and on for the past 2 years but states that it is not on a daily or weekly basis. She also notes history of migraines with symptoms of nausea and vomiting. Patient states migraine initiated approximately 48 hours before uncontrolled vomiting was initiated. She was not responsive to any anti- medics. Gastroenterology was consulted to assist with the symptoms and a plan of care. Labs reviewed showing hemoglobin 14.1, d-dimer 0.50, bilirubin and LFTs were normal. Pulmonary perfusion scan was also noted and negative. Patient denies any previous EGD or colonoscopy and no family history of colon cancer. Currently patient denies any abdominal pain no diarrhea no constipation. She states last bowel movement within the last 24 hours was green and formed. Patient denies any NSAID use and no marijuana use use. Review of Systems All other systems reviewed negative except as stated in HPI PMFSH - History History Provided By: Patient - Medical History Medical History: Medical History (Last Reviewed 07/22/18 @ 14:38 by Charbel Dhillon PT) Migraines Anxiety Depression Fibromyalgia HTN (hypertension) Hx of bipolar disorder - Surgical History Surgical History: Surgical History (Last Reviewed 07/21/18 @ 21:23 by JONI Maxwell) History of appendectomy History of cholecystectomy History of lumpectomy of right breast History of tubal ligation - Tobacco History Second Hand Smoke Exposure: Yes Tobacco Use In Past 30 Days: No Smoking Status: Former smoker Tobacco Type: Cigarettes - Alcohol History How Often Do You Have a Drink Containing Alcohol: 2 to 3 times a week - Substance Use History Substance History: No History of Abuse - Travel History Recent Travel in the [place] Within the Last 8 Weeks: Yes Recent Travel Out of the Country Within the Last 8 Weeks: No - Immunization History Tetanus Immunization: >5 Years Medications and Allergies Active Medications: Active Medications Acetaminophen (Tylenol) 650 mg PO Q4H PRN PRN Reason: Temp > 100.4 Last Admin: 07/22/18 08:22 Dose: 650 mg Al Hydroxide/Mg Hydroxide (Milk Of Magnesia Liq) 30 ml PO Q12H PRN PRN Reason: Mild Constipation Aspirin (Ecotrin) 81 mg PO DAILY [facility] Last Admin: 07/23/18 08:17 Dose: 81 mg Bisacodyl (Dulcolax Supp) 10 mg RECTAL DAILY PRN PRN Reason: SEVERE CONSITIPATION Clonidine HCl (Catapres) 0.2 mg PO BID [facility] Last Admin: 07/23/18 08:17 Dose: 0.2 mg Duloxetine HCl (Cymbalta) 30 mg PO DAILY [facility] Last Admin: 07/23/18 08:18 Dose: 30 mg Enalaprilat (Vasotec Inj) 1.25 mg IV.PUSH Q6H PRN PRN Reason: HYPERTENSION Famotidine (Pepcid Pf Inj) 20 mg IV.PUSH Q12H [facility] Last Admin: 07/23/18 03:18 Dose: 20 mg Gabapentin (Neurontin) 600 mg PO HS [facility] Last Admin: 07/22/18 20:59 Dose: 600 mg Gabapentin (Neurontin) 100 mg PO BID [facility] Last Admin: 07/23/18 08:18 Dose: 100 mg Hydralazine HCl (Apresoline Inj) 20 mg IV.PUSH Q4H PRN PRN Reason: HYPERTENSION Last Admin: 07/22/18 17:40 Dose: 20 mg Sodium Chloride (Ns Inj) 1,000 mls @ 100 mls/hr IV.SIG .Q10H [facility] Last Admin: 07/23/18 04:58 Dose: 100 mls/hr Lactulose (Lactulose Liq) 30 ml PO DAILY PRN PRN Reason: SEVERE CONSITIPATION Lisinopril (Prinivil) 40 mg PO DAILY [facility] Last Admin: 07/23/18 08:17 Dose: 40 mg Lorazepam (Ativan Inj) 1 mg IV.PUSH Q4H PRN PRN Reason: AGITATION/CHEST PAIN Last Admin: 07/23/18 08:15 Dose: 1 mg Methocarbamol (Robaxin) 500 mg PO BID [facility] Last Admin: 07/23/18 08:17 Dose: 500 mg Morphine Sulfate (Morphine Inj) 2 mg IV.PUSH Q4H PRN PRN Reason: PAIN 6-10 Last Admin: 07/22/18 13:37 Dose: 2 mg Ondansetron HCl (Zofran Inj) 4 mg IV.PUSH Q6H PRN PRN Reason: NAUSEA OR VOMITING Last Admin: 07/23/18 10:03 Dose: 4 mg Pantoprazole Sodium (Protonix) 40 mg PO BID [facility] Pravastatin Sodium (Pravachol) 40 mg PO DAILY [facility] Last Admin: 07/23/18 08:17 Dose: 40 mg Quetiapine Fumarate (Seroquel) 600 mg PO [facility] Last Admin: 07/22/18 20:59 Dose: 600 mg Senna/Docusate Sodium (Corrie-Colace) 1 tab PO BID [facility] Last Admin: 07/23/18 08:18 Dose: 1 tab Sennosides (Senokot) 17.2 mg PO Q12H PRN PRN Reason: Moderate Constipation Sodium Chloride (Ns Flush) 2 ml IV.FLUSH UNSCH PRN PRN Reason: FLUSH AFTER USING IV ACCESS Sucralfate (Carafate) 1 gm PO ACHS [facility] Last Admin: 07/23/18 11:36 Dose: 1 gm Allergies Allergy/AdvReac Type Severity Reaction Status Date / Time sumatriptan [From Imitrex] Allergy Anaphylaxis Verified 07/21/18 20:32 Home Medications Medication Instructions Recorded Confirmed Type clonidine HCl 0.2 mg PO BID 05/25/18 07/21/18 History duloxetine [Cymbalta] 30 mg PO DAILY 05/25/18 07/21/18 History lisinopril 40 mg PO DAILY 05/25/18 07/21/18 History quetiapine [Seroquel] 600 mg PO HS 05/25/18 07/21/18 History gabapentin 100 mg PO BID 07/21/18 07/21/18 History gabapentin 600 mg PO HS 07/21/18 07/21/18 History methocarbamol 500 mg PO BID 07/21/18 07/21/18 History tramadol 100 mg PO Q4-6H PRN 07/21/18 07/21/18 History Exam Vital signs: Vital Signs 07/22/18 13:55 07/22/18 14:00 07/22/18 14:54 Temperature Pulse Rate 100 H Respiratory Rate Blood Pressure 159/94 H Pulse Oximetry 96 07/22/18 15:00 07/22/18 16:00 07/22/18 17:00 Temperature 98.2 F Pulse Rate 92 H 91 H 103 H Respiratory Rate 18 Blood Pressure 147/93 H Pulse Oximetry 97 07/22/18 17:38 07/22/18 18:00 07/22/18 18:23 Temperature Pulse Rate 107 H Respiratory Rate Blood Pressure 160/110 H 178/107 H Pulse Oximetry 07/22/18 19:00 07/22/18 20:00 07/22/18 21:00 Temperature 98.2 F Pulse Rate 90 99 H 95 H Respiratory Rate 18 Blood Pressure 154/93 H Pulse Oximetry 97 07/22/18 22:00 07/22/18 23:00 07/23/18 00:00 Temperature 99 F Pulse Rate 96 H 93 H 95 H Respiratory Rate 18 Blood Pressure 126/66 Pulse Oximetry 96 07/23/18 01:00 07/23/18 02:00 07/23/18 03:00 Temperature Pulse Rate 90 88 93 H Respiratory Rate Blood Pressure Pulse Oximetry 07/23/18 03:53 07/23/18 03:54 07/23/18 05:00 Temperature 98.2 F Pulse Rate 89 89 88 Respiratory Rate 18 Blood Pressure 117/77 Pulse Oximetry 97 07/23/18 06:00 07/23/18 07:00 07/23/18 07:28 Temperature Pulse Rate 91 H 76 77 Respiratory Rate Blood Pressure Pulse Oximetry 07/23/18 08:00 07/23/18 09:00 07/23/18 09:34 Temperature 98.2 F Pulse Rate 76 83 Respiratory Rate 18 Blood Pressure 128/72 Pulse Oximetry 96 96 07/23/18 09:35 07/23/18 11:00 07/23/18 12:00 Temperature 98.6 F Pulse Rate 86 71 83 Respiratory Rate 18 Blood Pressure 131/76 Pulse Oximetry 96 07/23/18 13:00 Temperature Pulse Rate 78 Respiratory Rate Blood Pressure Pulse Oximetry Intake & Output 07/22/18 07/23/18 07/23/18 18:59 06:59 18:59 Intake Total 250 / 250 1250 / 1250 Output Total 800 / 800 Balance 250 / 250 450 / 450 Weight 71.9 kg Intake: IV 1000 / 1000 NS Inj 1,000 ML @ 100 mls/hr IV 1000 / 1000 .SIG .Q10H [facility] Rx#:[id number] Oral 250 / 250 250 / 250 Output: Urine 800 / 800 Other: # Voids 1 Date of Last Bowel Movement 07/23/18 # Bowel Movements 0 - Constitutional mild distress, disheveled - Routine HEENT Exam Head: Present: normocephalic ENT: Present: mucous membranes moist - Routine Respiratory Exam Present: accessory muscle use - Routine Cardiovascular Exam Present: S1, S2 - Routine Abdominal Exam Present: soft, normoactive bowel sounds - Routine Skin Exam Present: intact - Routine Neurological Exam Present: altered mental status Results - Labs CBC & Chem 7: 07/23/18 09:28 07/23/18 06:25 Labs: Laboratory Results - last 24 hr 07/22/18 07/23/18 07/23/18 09:30 06:25 09:28 WBC 6.4 RBC 4.49 Hgb 13.0 Hct 37.3 MCV 83.2 MCH 28.9 MCHC 34.8 RDW 14.8 Plt Count 283 MPV 8.7 Neut % (Auto) 48.9 Lymph % (Auto) 41.3 [place] % (Auto) 8.2 H Eos % (Auto) 1.1 Baso % (Auto) 0.5 Neut # (Auto) 3.1 Lymph # (Auto) 2.6 [place] # (Auto) 0.5 Eos # (Auto) 0.1 Baso # (Auto) 0.0 WBC Differential . Differential Comment Auto diff final Sodium 137 Potassium 3.8 Chloride 104 Carbon Dioxide 24.0 Anion Gap 9 BUN 17 Creatinine 1.14 H Estimated GFR 62 L Random Glucose 107 H Hemoglobin A1c 5.5 Calcium 8.6 Total Bilirubin 0.6 AST 25 ALT 43 Alkaline Phosphatase 64 Total Protein 7.5 D Albumin 3.4 Assessment and Plan - Plan 43-year-old female who came into the hospital for evaluation on 07/21/2018 with chest pain. Patient is presently being worked up per cardiology, negative troponin so far. Patient also notes some symptoms of GERD/reflux symptoms off and on for the past 2 years but states that it is not on a daily or weekly basis. She also notes history of migraines with symptoms of nausea and vomiting. Patient states migraine initiated approximately 48 hours before uncontrolled vomiting was initiated. She was not responsive to any anti- medics. Gastroenterology was consulted to assist with the symptoms and a plan of care. Labs reviewed showing hemoglobin 14.1, d-dimer 0.50, bilirubin and LFTs were normal. Pulmonary perfusion scan was also noted and negative. Patient denies any previous EGD or colonoscopy and no family history of colon cancer. Currently patient denies any abdominal pain no diarrhea no constipation. She states last bowel movement within the last 24 hours was green and formed. Patient denies any NSAID use and no marijuana use use. Profuse nausea and vomiting approximately 48 hours after migraine. Does note a history of some nausea and vomiting after migraines but this was the worst case and was ineffective to anti-medics History of chronic GERD/dyspepsia symptoms off and on for 1-2 years, but symptoms are random and not on weekly. Unaware of any aggregating factors or relieving factors Denies any NSAID use or marijuana use. No previous EGD or colonoscopy Chest pain rule out ID currently being evaluated per cardiology. Appreciate input and stress test is being done today. Will need cardiology clearance before any GI workup initiated. Plan Diet per attending Monitor labs for any obvious bleeding PPI started twice a day p.o. Dependent on cardiology testing may consider EGD in a.m. Supportive care Further recommendations to follow Patient was seen per myself and Dr. Swanson, note was written on his behalf
[2018-07-23] MEDS: Gabapentin 300 MG Capsule PO SCH (20:33)
[2018-07-24] MEDS: Sod Chloride 0.9% Inj 1,000 ML IV.SIG SCH ×3 (00:29→20:48)
[2018-07-24] MEDS: Famotidine PF Inj 20 MG/2 ML Vial IV.PUSH SCH ×2 (03:57→16:21)
[2018-07-24] MEDS: Methocarbamol 500 MG Tablet PO SCH ×2 (08:23→20:46)
[2018-07-24] MEDS: Lisinopril 20 MG Tablet PO SCH (08:23)
[2018-07-24] MEDS: Gabapentin 100 MG Capsule PO SCH ×2 (08:23→20:46)
[2018-07-24] MEDS: Sucralfate 1 GM Tablet PO SCH ×4 (08:24→20:46)
[2018-07-24] MEDS: Senna/Docusate Sodium 8.6/50 MG Tablet PO SCH ×2 (08:24→20:46)
[2018-07-24] MEDS ORDERED: Lidocaine PF 1% Inj 5 ML Syringe OTHER ONE (09:42)
[2018-07-24] MEDS ORDERED: Labetalol HCl Inj 100 MG/20 ML Vial IV.CONT ONE (09:42)
[2018-07-24] MEDS ORDERED: Succinylcholine Inj 100 MG/5 ML Syringe IV.PUSH ONE (09:42)
--- NOTE | 2018-07-24 09:54 | P.PN ---
Subjective Interval history: This is a pleasant 43 y/o Female with Anxiety disorder, depression, Fibromyalgia , Bipolar disorder, Hypertension, who came to ER with Chest pain her Troponin has been stable while this hospitalization her V/Q scan negative, but she continue with Chest pain will ask for cardiology consult, she had Cardiac Cath in the past, she was told she had a spasm, On arrival, noted to be significantly hypertensive w/ BP 237/127, HR 94. On Clonidine 0.2mg bid and Lisinopril 40mg qd, reports compliance w/ medications, at this time continue with Chest pain, Hypertensive Emergency improving with Vasotec IV. asked for integration specialist consult, started on Carafate and Famotidine. continue liquid diet. 07/23: Seen in her bedroom, she was already evaluated by integration specialist not impressed about the possibility or Cardiac disease but asked for Stress test. Seen by GI specialist due to nausea and vomit not improving, studying for probable EGD in am tomorrow. 07/24: Seen patient she is going for EGD at this time, stable no complaint, no nausea, vomit or diarrhea continue present care, her laboratory is stable, vital signs stable, Improving her headache, awaiting for Psychiatry specialist consult, if cleared by GI and Psych she will go home later today. her Stress test was negative. Physical Exam Vital signs: Vital Signs 07/23/18 11:00 07/23/18 12:00 07/23/18 13:00 Temperature 98.6 F Pulse Rate 71 83 78 Respiratory Rate 18 Blood Pressure 131/76 Pulse Oximetry 96 07/23/18 14:00 07/23/18 15:00 07/23/18 15:52 Temperature Pulse Rate 97 H 92 H 75 Respiratory Rate Blood Pressure Pulse Oximetry 07/23/18 16:00 07/23/18 16:54 07/23/18 17:47 Temperature 98.4 F Pulse Rate 80 82 Respiratory Rate 18 Blood Pressure 130/85 Pulse Oximetry 98 98 07/23/18 17:52 07/23/18 19:00 07/23/18 20:00 Temperature 98.1 F Pulse Rate 80 80 96 H Respiratory Rate 18 Blood Pressure 126/75 Pulse Oximetry 97 07/23/18 21:00 07/23/18 22:00 07/23/18 23:00 Temperature Pulse Rate 92 H 90 84 Respiratory Rate Blood Pressure Pulse Oximetry 07/24/18 00:00 07/24/18 01:00 07/24/18 02:00 Temperature 98.3 F Pulse Rate 81 84 80 Respiratory Rate 18 Blood Pressure 131/87 Pulse Oximetry 96 07/24/18 03:00 07/24/18 04:00 07/24/18 05:00 Temperature 98.4 F Pulse Rate 82 70 74 Respiratory Rate 18 Blood Pressure 123/77 Pulse Oximetry 98 07/24/18 06:00 07/24/18 07:00 07/24/18 08:00 Temperature 98.7 F Pulse Rate 76 67 61 Respiratory Rate 18 Blood Pressure 152/90 H Pulse Oximetry 98 07/24/18 09:00 Temperature Pulse Rate 70 Respiratory Rate Blood Pressure Pulse Oximetry Intake & Output 07/23/18 07/24/18 07/24/18 18:59 06:59 18:59 Intake Total 1620 / 1620 1480 / 1480 1000 / 1000 Output Total 100 / 100 1200 / 1200 Balance 1520 / 1520 280 / 280 1000 / 1000 Weight 76.6 kg Intake: IV 1000 / 1000 1000 / 1000 1000 / 1000 NS Inj 1,000 ML @ 100 mls/hr IV 1000 / 1000 1000 / 1000 1000 / 1000 .SIG .Q10H [facility] Rx#:[id number] Oral 620 / 620 480 / 480 Output: Urine 100 / 100 1200 / 1200 Other: Date of Last Bowel Movement 07/23/18 # Bowel Movements 0 Narrative: GENERAL: No acute distress. SKIN: Focused skin assessment warm and dry. HEENT: PERRLA, EOMI. No scleral icterus or conjunctival pallor. No lid lag or facial droop. CARDIOVASCULAR: Regular rate and rhythm. No obvious murmurs to auscultation. No chest tenderness to palpation. RESPIRATORY: No obvious rhonchi or wheezing. Clear to auscultation. Breath sounds equal bilaterally. GASTROINTESTINAL: Abdomen soft, non-tender, nondistended. BS normal. MUSCULOSKELETAL: Extremities without clubbing, cyanosis, or edema. No obvious deformities. NEUROLOGICAL: Awake, alert and oriented x4. No focal neurologic deficits. Moving both upper and lower extremities spontaneously. PSYCHIATRIC: Appropriate mood and affect. Insight and judgment normal. Results - Labs CBC & Chem 7: 07/23/18 09:28 07/23/18 06:25 Laboratory Results - last 24 hr 07/23/18 09:28 WBC 6.4 RBC 4.49 Hgb 13.0 Hct 37.3 MCV 83.2 MCH 28.9 MCHC 34.8 RDW 14.8 Plt Count 283 MPV 8.7 Neut % (Auto) 48.9 Lymph % (Auto) 41.3 [place] % (Auto) 8.2 H Eos % (Auto) 1.1 Baso % (Auto) 0.5 Neut # (Auto) 3.1 Lymph # (Auto) 2.6 [place] # (Auto) 0.5 Eos # (Auto) 0.1 Baso # (Auto) 0.0 WBC Differential . Differential Comment Auto diff final - Imaging Chest X-Ray 07/21/18 20:37 CONCLUSION: Minimal basilar atelectasis. No consolidation or effusion. Head CT 07/21/18 23:07 CONCLUSION: 1. Negative noncontrast CT brain. 2. Mild thickening of the dependent sphenoid sinuses. Pulmonary Perfusion Imaging 07/22/18 23:31 CONCLUSION: 1. Negative examination. - Procedures Stress test. Assessment and Plan - Assessment (1) Chest pain Code(s): R07.9 - Chest pain, unspecified Status: Acute (2) Hypertensive urgency Code(s): I16.0 - Hypertensive urgency Status: Acute - Plan 1. Hypertensive Urgency: BP 230's on arrival, on Clonidine 0.2mg bid and Lisinopril 40mg qd, compliant w/ medications. S/p Metoprolol 25mg po x1, NTG x2 and Morphine w/ minimal improvement, recommend to hold Cardene for now, s/p IV Hydralazine/Lopressor w/ significant improvement in BP, currently 150's, pt feeling much better. recommended to continue Home medicines. at this time added Vasotec she was vomiting earlier I think was not receiving her dosages of medicines. on Hydralazine and Vasotec PRN. Improving. 2. Atypical Chest pain, s/p Cardiac Cath for "small myocardial infarct" in 2011 , told she had "spasm", does not know if she had stent placed. troponin negative all sets, V/Q scan negative, integration specialist following not impressed for Cardiac disease but asked for Stress test was negative. 3. Acute Gastritis suspected Famotidine and Carafate. probable EGD by GI specialist will be done at this time awaiting result 4. Anxiety and Depression, Bipolar disorder asked for Psychiatry specialist consult Due to Lethargy yesterday removed Ativan continue her own medicines. Awaiting for her Psych and GI specialist clearance for discharge. DVT Prophylaxis: Heparin Code Status: Full Code. Discussed Condition With: Patient and Nurse Miss Grover Discharge Planning: Expected later today.
--- NOTE | 2018-07-24 10:24 | GIPROC ---
[facility] [address] [facility]. [facility], [address] EGD PROCEDURE REPORT EXAM DATE: 07/24/2018 PATIENT NAME: Maxim Ascencio V MR #: [id number] BIRTHDATE: 1975 ATTENDING: Paul Swanson MD ORDER #: [id number] BULBS FARMWORKER: Ermias Love and Katalina Ramirez STATUS: inpatient INDICATIONS: The patient is a 43 yr old female here for an EGD due to chest pain and dyspepsia PROCEDURE PERFORMED: EGD w/ biopsy MEDICATIONS: None and Per Anesthesia. TOPICAL ANESTHETIC: none CONSENT: The patient understands the risks and benefits of the procedure and understands that these risks include, but are not limited to: sedation, allergic reaction, infection, perforation and/or bleeding. Alternative means of evaluation and treatment include, among others: physical exam, x-rays, and/or surgical intervention. The patient elects to proceed with this endoscopic procedure. medical equipment was checked for proper function. Hand hygiene and appropriate measures for infection prevention was taken. After the risks, benefits and alternatives of the procedure were thoroughly explained, Informed consent was verified, confirmed and timeout was successfully executed by the treatment team. The patient was anesthetized with topical anesthesia and the Pentax EG-[id number] endoscope was introduced through the mouth and advanced to the second portion of the duodenum. Retroflexed views revealed no abnormalities The gastroscope was then slowly withdrawn and removed. ESOPHAGUS: There was LA Class B esophagitis noted. Multiple biopsies were performed. STOMACH: There was mild antral gastropathy noted. Cold forcep biopsies were taken at the antrum and angularis. DUODENUM: The duodenal mucosa appeared normal in the entire duodenum. ADVERSE EVENTS: There were no complications. IMPRESSIONS: 1. There was LA Class B esophagitis noted; multiple biopsies were performed 2. There was mild antral gastropathy noted [T2] 3. Normal duodenal mucosa in the entire duodenum 4. Retroflexed views revealed no abnormalities RECOMMENDATIONS: Await biopsy results. Biopsy results will not be ready for 7-10 days. If you don't hear from us in two weeks, call our office for biopsy results. PATIENT CONDITION: stable DISPOSITION: Inpatient REPEAT EXAM: Return as needed for EGD Paul Swanson MD eSigned: Paul Swanson MD 07/24/2018 10:24 AM cc: PATIENT NAME: Enrique Ascencioaugustina Mansoor MR#: [id number]
[2018-07-24] MEDS: hydrALAZINE HCl Inj 20 MG/ML Vial IV.PUSH PRN (10:34)
[2018-07-24] MEDS ORDERED: Butalbital/APAP/Caff 50/325/40 MG Tablet PO ONE (11:34)
--- NOTE | 2018-07-24 11:35 | P.PNCA ---
Subjective Interval history: Pt c/o migraine Medications and Allergies Active Medications: Active Medications Acetaminophen (Tylenol) 650 mg PO Q4H PRN PRN Reason: Temp > 100.4 Last Admin: 07/22/18 08:22 Dose: 650 mg Al Hydroxide/Mg Hydroxide (Milk Of Magnesia Liq) 30 ml PO Q12H PRN PRN Reason: Mild Constipation Aspirin (Ecotrin) 81 mg PO DAILY [facility] Last Admin: 07/24/18 08:24 Dose: Not Given Bisacodyl (Dulcolax Supp) 10 mg RECTAL DAILY PRN PRN Reason: SEVERE CONSITIPATION Clonidine HCl (Catapres) 0.2 mg PO BID [facility] Last Admin: 07/24/18 08:23 Dose: 0.2 mg Duloxetine HCl (Cymbalta) 30 mg PO DAILY [facility] Last Admin: 07/24/18 08:23 Dose: 30 mg Enalaprilat (Vasotec Inj) 1.25 mg IV.PUSH Q6H PRN PRN Reason: HYPERTENSION Famotidine (Pepcid Pf Inj) 20 mg IV.PUSH Q12H [facility] Last Admin: 07/24/18 03:57 Dose: 20 mg Gabapentin (Neurontin) 600 mg PO HS [facility] Last Admin: 07/23/18 20:33 Dose: 600 mg Gabapentin (Neurontin) 100 mg PO BID [facility] Last Admin: 07/24/18 08:23 Dose: 100 mg Hydralazine HCl (Apresoline Inj) 20 mg IV.PUSH Q4H PRN PRN Reason: HYPERTENSION Last Admin: 07/24/18 10:34 Dose: 20 mg Sodium Chloride (Ns Inj) 1,000 mls @ 100 mls/hr IV.SIG .Q10H [facility] Last Admin: 07/24/18 09:47 Dose: 100 mls/hr Lactulose (Lactulose Liq) 30 ml PO DAILY PRN PRN Reason: SEVERE CONSITIPATION Lisinopril (Prinivil) 40 mg PO DAILY [facility] Last Admin: 07/24/18 08:23 Dose: 40 mg Methocarbamol (Robaxin) 500 mg PO BID [facility] Last Admin: 07/24/18 08:23 Dose: 500 mg Miscellaneous Information (Misc Nursing Information) 0 each OTHER UNSCH PRN PRN Reason: SEE LABEL COMMENTS Stop: 07/25/18 10:08 Morphine Sulfate (Morphine Inj) 2 mg IV.PUSH Q4H PRN PRN Reason: PAIN 6-10 Last Admin: 07/22/18 13:37 Dose: 2 mg Ondansetron HCl (Zofran Inj) 4 mg IV.PUSH Q6H PRN PRN Reason: NAUSEA OR VOMITING Last Admin: 07/23/18 10:03 Dose: 4 mg Pantoprazole Sodium (Protonix) 40 mg PO BID [facility] Last Admin: 07/24/18 08:23 Dose: 40 mg Pravastatin Sodium (Pravachol) 40 mg PO DAILY [facility] Last Admin: 07/24/18 08:24 Dose: Not Given Quetiapine Fumarate (Seroquel) 600 mg PO HS [facility] Last Admin: 07/23/18 21:43 Dose: 600 mg Senna/Docusate Sodium (Corrie-Colace) 1 tab PO BID [facility] Last Admin: 07/24/18 08:24 Dose: Not Given Sennosides (Senokot) 17.2 mg PO Q12H PRN PRN Reason: Moderate Constipation Sodium Chloride (Ns Flush) 2 ml IV.FLUSH UNSCH PRN PRN Reason: FLUSH AFTER USING IV ACCESS Last Admin: 07/23/18 20:34 Dose: 2 ml Sucralfate (Carafate) 1 gm PO ACHS [facility] Last Admin: 07/24/18 08:24 Dose: Not Given Allergies Allergy/AdvReac Type Severity Reaction Status Date / Time sumatriptan [From Imitrex] Allergy Anaphylaxis Verified 07/21/18 20:32 Home Medications Medication Instructions Recorded Confirmed Type clonidine HCl 0.2 mg PO BID 05/25/18 07/21/18 History duloxetine [Cymbalta] 30 mg PO DAILY 05/25/18 07/21/18 History lisinopril 40 mg PO DAILY 05/25/18 07/21/18 History quetiapine [Seroquel] 600 mg PO HS 05/25/18 07/21/18 History gabapentin 100 mg PO BID 07/21/18 07/21/18 History gabapentin 600 mg PO HS 07/21/18 07/21/18 History methocarbamol 500 mg PO BID 07/21/18 07/21/18 History tramadol 100 mg PO Q4-6H PRN 07/21/18 07/21/18 History Physical Exam Vital signs: Vital Signs 07/23/18 12:00 07/23/18 13:00 07/23/18 14:00 Temperature 98.6 F Pulse Rate 83 78 97 H Respiratory Rate 18 Blood Pressure 131/76 Pulse Oximetry 96 07/23/18 15:00 07/23/18 15:52 07/23/18 16:00 Temperature 98.4 F Pulse Rate 92 H 75 80 Respiratory Rate 18 Blood Pressure 130/85 Pulse Oximetry 98 07/23/18 16:54 07/23/18 17:47 07/23/18 17:52 Temperature Pulse Rate 82 80 Respiratory Rate Blood Pressure Pulse Oximetry 98 07/23/18 19:00 07/23/18 20:00 07/23/18 21:00 Temperature 98.1 F Pulse Rate 80 96 H 92 H Respiratory Rate 18 Blood Pressure 126/75 Pulse Oximetry 97 07/23/18 22:00 07/23/18 23:00 07/24/18 00:00 Temperature 98.3 F Pulse Rate 90 84 81 Respiratory Rate 18 Blood Pressure 131/87 Pulse Oximetry 96 07/24/18 01:00 07/24/18 02:00 07/24/18 03:00 Temperature Pulse Rate 84 80 82 Respiratory Rate Blood Pressure Pulse Oximetry 07/24/18 04:00 07/24/18 05:00 07/24/18 06:00 Temperature 98.4 F Pulse Rate 70 74 76 Respiratory Rate 18 Blood Pressure 123/77 Pulse Oximetry 98 07/24/18 07:00 07/24/18 08:00 07/24/18 09:00 Temperature 98.7 F Pulse Rate 67 61 70 Respiratory Rate 18 Blood Pressure 152/90 H Pulse Oximetry 98 07/24/18 10:11 07/24/18 10:15 07/24/18 10:19 Temperature 98.2 F Pulse Rate 100 H 105 H Respiratory Rate 16 16 Blood Pressure 157/100 H 165/105 H Pulse Oximetry 96 95 99 07/24/18 10:30 07/24/18 10:50 Temperature 98.1 F Pulse Rate 92 H 96 H Respiratory Rate 16 17 Blood Pressure 169/99 H 125/66 Pulse Oximetry 95 96 Intake & Output 07/23/18 07/24/18 07/24/18 18:59 06:59 18:59 Intake Total 1620 / 1620 1480 / 1480 1400 / 1400 Output Total 100 / 100 1200 / 1200 Balance 1520 / 1520 280 / 280 1400 / 1400 Weight 76.6 kg Intake: IV 1000 / 1000 1000 / 1000 1000 / 1000 NS Inj 1,000 ML @ 100 mls/hr IV 1000 / 1000 1000 / 1000 1000 / 1000 .SIG .Q10H [facility] Rx#:[id number] Oral 620 / 620 480 / 480 Anesthesia Amount 400 / 400 Output: Urine 100 / 100 1200 / 1200 Other: Date of Last Bowel Movement 07/23/18 # Bowel Movements 0 - Constitutional no acute distress - Routine HEENT Exam Head: Present: normocephalic, atraumatic - Routine Respiratory Exam Present: CTA bilaterally - Routine Cardiovascular Exam Present: RRR Results 07/23/18 09:28 07/23/18 06:25 Cardiac Enzymes 07/23/18 Range/Units 06:25 AST 25 (15-37) U/L CBC 07/23/18 Range/Units 09:28 WBC 6.4 (4.0-11.0) th/mm3 RBC 4.49 (4.00-5.30) mil/mm3 Hgb 13.0 (11.6-15.3) gm/dL Hct 37.3 (35.0-46.0) % Plt Count 283 (150-450) th/mm3 Neut # (Auto) 3.1 (1.8-7.7) th/mm3 Lymph # (Auto) 2.6 (1.0-4.8) th/mm3 Ralls # (Auto) 0.5 (0.0-0.9) th/mm3 Eos # (Auto) 0.1 (0.0-0.4) th/mm3 Baso # (Auto) 0.0 (0.0-0.2) th/mm3 Comprehensive Metabolic Panel 07/23/18 Range/Units 06:25 Sodium 137 (136-145) meq/L Potassium 3.8 (3.5-5.1) meq/L Chloride 104 (98-107) meq/L Carbon Dioxide 24.0 (21.0-32.0) meq/L BUN 17 (7-18) mg/dL Creatinine 1.14 H (0.50-1.00) mg/dL Calcium 8.6 (8.5-10.1) mg/dL AST 25 (15-37) U/L ALT 43 (10-53) U/L Alkaline Phosphatase 64 (45-117) U/L Total Protein 7.5 D (6.4-8.2) g/dL Albumin 3.4 (3.4-5.0) g/dL Intake and Output 07/23/18 07/24/18 07/24/18 22:59 06:59 14:59 Intake Total 620 / 620 1480 / 1480 1400 / 1400 Output Total 100 / 100 1200 / 1200 Balance 520 / 520 280 / 280 1400 / 1400 Intake: IV 1000 / 1000 1000 / 1000 NS Inj 1,000 ML @ 100 mls/hr IV 1000 / 1000 1000 / 1000 .SIG .Q10H [facility] Rx#:[id number] Oral 620 / 620 480 / 480 Anesthesia Amount 400 / 400 Output: Urine 100 / 100 1200 / 1200 Other: Date of Last Bowel Movement 07/23/18 # Bowel Movements 0 Weight 76.6 kg - Imaging and Cardiology EKG results: other (ETT was not ischemic) Assessment and Plan - Plan Atypical CP- EET was without ischemia--low CV risk for events Migraine- Fioricet Available PRN
--- NOTE | 2018-07-24 12:54 | P.CONPSY ---
Provisional Diagnosis Admission Date: July 22, 2018 00:57 History of Present Illness Service: psychiatry Consult date: 07/24/18 Reason for Consult: depression Primary Care Provider: No Primary Care Physician Chief Complaint: depression,anxiety History of Present Illness: Patient is a 43-year-old black female with a history of mood and anxiety disorders. She was admitted to the medical unit for complaints of chest pain. A workup was done by the medical team and they suggested is secondary to gastritis and she is medically clear at this time. Patient admits to daily depressed mood, low energy, insomnia. She is also complaining of passive suicidal thoughts, feeling worthless, feeling helpless. She has been off her medication for the past 3 weeks since she is moved to [place]. She describes occasional panic attacks at home. She describes a history of david where she acted erratically and spend excessive amounts of money. Past psych: Patient has been diagnosed with bipolar disorder and anxiety disorder in the past. She has had numerous inpatient psychiatric admissions. 2 of those admissions were for suicide attempts via overdose. Her last overdose was in 2014. She does not describe any specific stressors or situations that resulted in these actions. She denies a history of cutting. Scribes a history of psychotherapy. She was seeing a psychiatrist in [place]. Current medications include Seroquel 600 mg p.o. nightly, Neurontin 100 mg p.o. twice daily, and 600 mg p.o. nightly which helps her anxiety. And Cymbalta 30 mg daily Past medical: See chart Past Famhx: Denies Past Social: Patient is a iymz-ei-zhny mom. She is . She has a total of 8 kids 3 of which are grown and outside the home. She denies a history of substance use and does not at this time drink alcohol or use marijuana [facility] - History History Provided By: Patient - Medical History Medical History: Medical History (Last Reviewed 07/24/18 @ 12:50 by Dalton Mittal DO) Migraines Anxiety Depression Fibromyalgia HTN (hypertension) Hx of bipolar disorder - Surgical History Surgical History: Surgical History (Last Reviewed 07/24/18 @ 12:50 by Dalton Mittal DO) History of appendectomy History of cholecystectomy History of lumpectomy of right breast History of tubal ligation - Tobacco History Second Hand Smoke Exposure: Yes Tobacco Use In Past 30 Days: No Smoking Status: Former smoker Tobacco Type: Cigarettes - Alcohol History How Often Do You Have a Drink Containing Alcohol: 2 to 3 times a week - Substance Use History Substance History: No History of Abuse - Travel History Recent Travel in the [place] Within the Last 8 Weeks: Yes Recent Travel Out of the Country Within the Last 8 Weeks: No - Immunization History Tetanus Immunization: >5 Years Medications and Allergies Active Medications: Active Medications Acetaminophen (Tylenol) 650 mg PO Q4H PRN PRN Reason: Temp > 100.4 Last Admin: 07/22/18 08:22 Dose: 650 mg Acetaminophen/Butalbital/Caffeine (Fioricet 50-325-40) 1 tab PO Q6H PRN PRN Reason: HEADACHE Al Hydroxide/Mg Hydroxide (Milk Of Magnesia Liq) 30 ml PO Q12H PRN PRN Reason: Mild Constipation Aspirin (Ecotrin) 81 mg PO DAILY [facility] Last Admin: 07/24/18 08:24 Dose: Not Given Bisacodyl (Dulcolax Supp) 10 mg RECTAL DAILY PRN PRN Reason: SEVERE CONSITIPATION Clonidine HCl (Catapres) 0.2 mg PO BID [facility] Last Admin: 07/24/18 08:23 Dose: 0.2 mg Duloxetine HCl (Cymbalta) 30 mg PO DAILY [facility] Last Admin: 07/24/18 08:23 Dose: 30 mg Enalaprilat (Vasotec Inj) 1.25 mg IV.PUSH Q6H PRN PRN Reason: HYPERTENSION Famotidine (Pepcid Pf Inj) 20 mg IV.PUSH Q12H [facility] Last Admin: 07/24/18 03:57 Dose: 20 mg Gabapentin (Neurontin) 600 mg PO HS [facility] Last Admin: 07/23/18 20:33 Dose: 600 mg Gabapentin (Neurontin) 100 mg PO BID [facility] Last Admin: 07/24/18 08:23 Dose: 100 mg Hydralazine HCl (Apresoline Inj) 20 mg IV.PUSH Q4H PRN PRN Reason: HYPERTENSION Last Admin: 07/24/18 10:34 Dose: 20 mg Sodium Chloride (Ns Inj) 1,000 mls @ 100 mls/hr IV.SIG .Q10H [facility] Last Admin: 07/24/18 09:47 Dose: 100 mls/hr Lactulose (Lactulose Liq) 30 ml PO DAILY PRN PRN Reason: SEVERE CONSITIPATION Lisinopril (Prinivil) 40 mg PO DAILY [facility] Last Admin: 07/24/18 08:23 Dose: 40 mg Methocarbamol (Robaxin) 500 mg PO BID [facility] Last Admin: 07/24/18 08:23 Dose: 500 mg Miscellaneous Information ([place] Nursing Information) 0 each OTHER UNSCH PRN PRN Reason: SEE LABEL COMMENTS Stop: 07/25/18 10:08 Ondansetron HCl (Zofran Inj) 4 mg IV.PUSH Q6H PRN PRN Reason: NAUSEA OR VOMITING Last Admin: 07/23/18 10:03 Dose: 4 mg Pantoprazole Sodium (Protonix) 40 mg PO BID [facility] Last Admin: 07/24/18 08:23 Dose: 40 mg Pravastatin Sodium (Pravachol) 40 mg PO DAILY [facility] Last Admin: 07/24/18 08:24 Dose: Not Given Quetiapine Fumarate (Seroquel) 600 mg PO [facility] Last Admin: 07/23/18 21:43 Dose: 600 mg Senna/Docusate Sodium (Corrie-Colace) 1 tab PO BID [facility] Last Admin: 07/24/18 08:24 Dose: Not Given Sennosides (Senokot) 17.2 mg PO Q12H PRN PRN Reason: Moderate Constipation Sodium Chloride (Ns Flush) 2 ml IV.FLUSH UNSCH PRN PRN Reason: FLUSH AFTER USING IV ACCESS Last Admin: 07/23/18 20:34 Dose: 2 ml Sucralfate (Carafate) 1 gm PO ACHS [facility] Last Admin: 07/24/18 11:48 Dose: 1 gm Allergies Allergy/AdvReac Type Severity Reaction Status Date / Time sumatriptan [From Imitrex] Allergy Anaphylaxis Verified 07/21/18 20:32 Home Medications Medication Instructions Recorded Confirmed Type clonidine HCl 0.2 mg PO BID 05/25/18 07/21/18 History duloxetine [Cymbalta] 30 mg PO DAILY 05/25/18 07/21/18 History lisinopril 40 mg PO DAILY 05/25/18 07/21/18 History quetiapine [Seroquel] 600 mg PO HS 05/25/18 07/21/18 History gabapentin 100 mg PO BID 07/21/18 07/21/18 History gabapentin 600 mg PO HS 07/21/18 07/21/18 History methocarbamol 500 mg PO BID 07/21/18 07/21/18 History tramadol 100 mg PO Q4-6H PRN 07/21/18 07/21/18 History Exam Vital signs: Vital Signs 07/23/18 13:00 07/23/18 14:00 07/23/18 15:00 Temperature Pulse Rate 78 97 H 92 H Respiratory Rate Blood Pressure Pulse Oximetry 07/23/18 15:52 07/23/18 16:00 07/23/18 16:54 Temperature 98.4 F Pulse Rate 75 80 82 Respiratory Rate 18 Blood Pressure 130/85 Pulse Oximetry 98 07/23/18 17:47 07/23/18 17:52 07/23/18 19:00 Temperature Pulse Rate 80 80 Respiratory Rate Blood Pressure Pulse Oximetry 98 07/23/18 20:00 07/23/18 21:00 07/23/18 22:00 Temperature 98.1 F Pulse Rate 96 H 92 H 90 Respiratory Rate 18 Blood Pressure 126/75 Pulse Oximetry 97 07/23/18 23:00 07/24/18 00:00 07/24/18 01:00 Temperature 98.3 F Pulse Rate 84 81 84 Respiratory Rate 18 Blood Pressure 131/87 Pulse Oximetry 96 07/24/18 02:00 07/24/18 03:00 07/24/18 04:00 Temperature 98.4 F Pulse Rate 80 82 70 Respiratory Rate 18 Blood Pressure 123/77 Pulse Oximetry 98 07/24/18 05:00 07/24/18 06:00 07/24/18 07:00 Temperature Pulse Rate 74 76 67 Respiratory Rate Blood Pressure Pulse Oximetry 07/24/18 08:00 07/24/18 09:00 07/24/18 10:11 Temperature 98.7 F Pulse Rate 61 70 Respiratory Rate 18 Blood Pressure 152/90 H Pulse Oximetry 98 96 07/24/18 10:15 07/24/18 10:19 07/24/18 10:30 Temperature 98.2 F Pulse Rate 100 H 105 H 92 H Respiratory Rate 16 16 16 Blood Pressure 157/100 H 165/105 H 169/99 H Pulse Oximetry 95 99 95 07/24/18 10:50 Temperature 98.1 F Pulse Rate 96 H Respiratory Rate 17 Blood Pressure 125/66 Pulse Oximetry 96 Intake & Output 07/23/18 07/24/18 07/24/18 18:59 06:59 18:59 Intake Total 1620 / 1620 1480 / 1480 1400 / 1400 Output Total 100 / 100 1200 / 1200 Balance 1520 / 1520 280 / 280 1400 / 1400 Weight 76.6 kg Intake: IV 1000 / 1000 1000 / 1000 1000 / 1000 NS Inj 1,000 ML @ 100 mls/hr IV 1000 / 1000 1000 / 1000 1000 / 1000 .SIG .Q10H [facility] Rx#:[id number] Oral 620 / 620 480 / 480 Anesthesia Amount 400 / 400 Output: Urine 100 / 100 1200 / 1200 Other: Date of Last Bowel Movement 07/23/18 # Bowel Movements 0 Mental Status Examination Appearance: Appropriate Consciousness: Alert Orientation: x4 Motor Activity: Normal gait Speech: Hesitant, Slow Language: Adequate Fund of Knowledge: Adequate Attention and Concentration: Adequate Memory: Unremarkable Mood: Sad Affect: Sad, Blunt Thought Process & Associations: Intact Thought Content: Appropriate Hallucination Type: None Delusion Type: None Suicidal Ideation: Yes (Fleeting thoughts) Suicidal Plan: No Suicidal Intention: No Homicidal Ideation: No Homicidal Plan: No Homicidal Intention: No Insight: Fair Judgment: Impulsive Assessment and Plan - Assessment (1) Bipolar 1 disorder, depressed Code(s): F31.9 - Bipolar disorder, unspecified Status: Acute - Plan Plan: Given her passive suicidal ideation, not having a relationship with a psychiatrist, not having a prescription at home, I recommend admission to the psychiatric unit once a bed is available Justification for Continued Inpatient Stay: Patient would decompensate in a less restrictive setting
--- NOTE | 2018-07-24 16:10 | P.PNGI ---
Physical Exam Vital signs: Vital Signs 07/23/18 16:54 07/23/18 17:47 07/23/18 17:52 Temperature Pulse Rate 82 80 Respiratory Rate Blood Pressure Pulse Oximetry 98 07/23/18 19:00 07/23/18 20:00 07/23/18 21:00 Temperature 98.1 F Pulse Rate 80 96 H 92 H Respiratory Rate 18 Blood Pressure 126/75 Pulse Oximetry 97 07/23/18 22:00 07/23/18 23:00 07/24/18 00:00 Temperature 98.3 F Pulse Rate 90 84 81 Respiratory Rate 18 Blood Pressure 131/87 Pulse Oximetry 96 07/24/18 01:00 07/24/18 02:00 07/24/18 03:00 Temperature Pulse Rate 84 80 82 Respiratory Rate Blood Pressure Pulse Oximetry 07/24/18 04:00 07/24/18 05:00 07/24/18 06:00 Temperature 98.4 F Pulse Rate 70 74 76 Respiratory Rate 18 Blood Pressure 123/77 Pulse Oximetry 98 07/24/18 07:00 07/24/18 08:00 07/24/18 09:00 Temperature 98.7 F Pulse Rate 67 61 70 Respiratory Rate 18 Blood Pressure 152/90 H Pulse Oximetry 98 07/24/18 10:11 07/24/18 10:15 07/24/18 10:19 Temperature 98.2 F Pulse Rate 100 H 105 H Respiratory Rate 16 16 Blood Pressure 157/100 H 165/105 H Pulse Oximetry 96 95 99 07/24/18 10:30 07/24/18 10:50 07/24/18 12:00 Temperature 98.1 F 98.1 F Pulse Rate 92 H 96 H 79 Respiratory Rate 16 17 18 Blood Pressure 169/99 H 125/66 117/65 Pulse Oximetry 95 96 94 L 07/24/18 13:00 07/24/18 14:00 07/24/18 14:30 Temperature Pulse Rate 78 72 78 Respiratory Rate Blood Pressure Pulse Oximetry Intake & Output 07/23/18 07/24/18 07/24/18 18:59 06:59 18:59 Intake Total 1620 / 1620 1480 / 1480 1400 / 1400 Output Total 100 / 100 1200 / 1200 Balance 1520 / 1520 280 / 280 1400 / 1400 Weight 76.6 kg Intake: IV 1000 / 1000 1000 / 1000 1000 / 1000 NS Inj 1,000 ML @ 100 mls/hr IV 1000 / 1000 1000 / 1000 1000 / 1000 .SIG .Q10H [facility] Rx#:[id number] Oral 620 / 620 480 / 480 Anesthesia Amount 400 / 400 Output: Urine 100 / 100 1200 / 1200 Other: Date of Last Bowel Movement 07/23/18 # Bowel Movements 0 Results - Labs CBC & Chem 7: 07/23/18 09:28 07/23/18 06:25 - Procedures Stress test. Assessment and Plan - Plan 43-year-old female who came into the hospital for evaluation on 07/21/2018 with chest pain. Patient is presently being worked up per cardiology, negative troponin so far. Patient also notes some symptoms of GERD/reflux symptoms off and on for the past 2 years but states that it is not on a daily or weekly basis. She also notes history of migraines with symptoms of nausea and vomiting. Patient states migraine initiated approximately 48 hours before uncontrolled vomiting was initiated. She was not responsive to any anti- medics. Gastroenterology was consulted to assist with the symptoms and a plan of care. Labs reviewed showing hemoglobin 14.1, d-dimer 0.50, bilirubin and LFTs were normal. Pulmonary perfusion scan was also noted and negative. Patient denies any previous EGD or colonoscopy and no family history of colon cancer. Currently patient denies any abdominal pain no diarrhea no constipation. She states last bowel movement within the last 24 hours was green and formed. Patient denies any NSAID use and no marijuana use use. Profuse nausea and vomiting approximately 48 hours after migraine. Does note a history of some nausea and vomiting after migraines but this was the worst case and was ineffective to anti-medics History of chronic GERD/dyspepsia symptoms off and on for 1-2 years, but symptoms are random and not on weekly. Unaware of any aggregating factors or relieving factors Denies any NSAID use or marijuana use. No previous EGD or colonoscopy Chest pain rule out [place] currently being evaluated per cardiology. Appreciate input and stress test is being done today. Will need cardiology clearance before any GI workup initiated. 07/24/2018 patient, had EGD today with findings include LA class B esophagitis with multiple biopsies taken and mild antral gastropathy . Patient is to remain on PPI, bowel regimen as needed and follow-up in the GI office for biopsies that are pending. Supportive care to patient GI will sign off. Hemoglobin 13., no obvious bleeding Patient was seen per Dr. Swanson, note was written on his behalf
[2018-07-24] MEDS: Gabapentin 300 MG Capsule PO SCH (20:45)
[2018-07-25] MEDS: Famotidine PF Inj 20 MG/2 ML Vial IV.PUSH SCH ×2 (03:33→16:39)
[2018-07-25] MEDS: Sod Chloride 0.9% Inj 1,000 ML IV.SIG SCH ×3 (05:42→15:54)
[2018-07-25] MEDS: Methocarbamol 500 MG Tablet PO SCH ×2 (08:32→22:23)
[2018-07-25] MEDS: Gabapentin 100 MG Capsule PO SCH ×2 (08:33→22:24)
[2018-07-25] MEDS: Sucralfate 1 GM Tablet PO SCH ×4 (08:33→22:24)
[2018-07-25] MEDS: Senna/Docusate Sodium 8.6/50 MG Tablet PO SCH ×2 (08:33→22:24)
[2018-07-25] MEDS: Lisinopril 20 MG Tablet PO SCH (08:33)
--- NOTE | 2018-07-25 16:47 | P.PN ---
Subjective Interval history: This is a pleasant 43 y/o Female with Anxiety disorder, depression, Fibromyalgia , Bipolar disorder, Hypertension, who came to ER with Chest pain her Troponin has been stable while this hospitalization her V/Q scan negative, but she continue with Chest pain will ask for cardiology consult, she had Cardiac Cath in the past, she was told she had a spasm, On arrival, noted to be significantly hypertensive w/ BP 237/127, HR 94. On Clonidine 0.2mg bid and Lisinopril 40mg qd, reports compliance w/ medications, at this time continue with Chest pain, Hypertensive Emergency improving with Vasotec IV. asked for treasury specialist consult, started on Carafate and Famotidine. continue liquid diet. 07/23: Seen in her bedroom, she was already evaluated by treasury specialist not impressed about the possibility or Cardiac disease but asked for Stress test. Seen by GI specialist due to nausea and vomit not improving, studying for probable EGD in am tomorrow. 07/24: Seen patient she is going for EGD at this time, stable no complaint, no nausea, vomit or diarrhea continue present care, her laboratory is stable, vital signs stable, Improving her headache, awaiting for Psychiatry specialist consult, if cleared by GI and Psych she will go home later today. her Stress test was negative. Discussed with Doctor gay Nair Diagnosis of Bipolar Disorder and Given her passive suicidal ideation, not having a relationship with a psychiatrist, not having a prescription at home , I recommend admission to [facility] unit once a bed is available. Placed Discharge Order to Inpatient Psychiatric unit when bed available. Medically clear to discharge to Inpatient Psychiatric unit 07/25: Patient stable she decided not to go to Inpatient Psychiatric unit, and after seen by Psychiatry today recommended for follow as outpatient, she is not candidate for Jones Act, but her blood pressure is uncontrolled again today, adjusted anti hypertensives and will follow for discharge, no nausea, vomit or diarrhea. Physical Exam Vital signs: Vital Signs 07/24/18 16:51 07/24/18 17:28 07/24/18 19:00 Temperature Pulse Rate 111 H 78 88 Respiratory Rate Blood Pressure Pulse Oximetry 07/24/18 20:00 07/24/18 21:00 07/24/18 22:00 Temperature 98.1 F Pulse Rate 92 H 90 89 Respiratory Rate 18 Blood Pressure 139/82 Pulse Oximetry 97 07/24/18 23:00 07/25/18 00:00 07/25/18 01:00 Temperature 98.3 F Pulse Rate 80 83 86 Respiratory Rate 20 Blood Pressure 145/75 H Pulse Oximetry 96 07/25/18 02:00 07/25/18 03:00 07/25/18 03:50 Temperature 98.2 F Pulse Rate 80 72 72 Respiratory Rate 18 Blood Pressure 144/87 H Pulse Oximetry 97 07/25/18 04:00 07/25/18 05:00 07/25/18 05:58 Temperature Pulse Rate 72 76 77 Respiratory Rate Blood Pressure Pulse Oximetry 07/25/18 07:00 07/25/18 07:46 07/25/18 08:00 Temperature 98.4 F Pulse Rate 65 67 80 Respiratory Rate 18 Blood Pressure 175/114 H Pulse Oximetry 98 07/25/18 08:52 07/25/18 09:57 07/25/18 11:00 Temperature Pulse Rate 77 101 H 78 Respiratory Rate Blood Pressure Pulse Oximetry 07/25/18 12:00 07/25/18 13:00 07/25/18 13:46 Temperature 98.2 F Pulse Rate 77 78 80 Respiratory Rate 18 Blood Pressure 156/92 H Pulse Oximetry 99 07/25/18 15:00 07/25/18 16:00 Temperature 98.6 F Pulse Rate 70 83 Respiratory Rate 19 Blood Pressure 197/113 H Pulse Oximetry 98 Intake & Output 07/24/18 07/25/18 07/25/18 18:59 06:59 18:59 Intake Total 2019 2480 / 2480 1000 / 1000 Output Total 900 / 900 Balance 2019 1580 / 1580 1000 / 1000 Weight 76.2 kg Intake: IV 1000 / 1000 1999 / 1999 1000 / 1000 NS Inj 1,000 ML @ 100 mls/hr IV 1000 / 1000 2000 / 2000 1000 / 1000 .SIG .Q10H DANIA Rx#:[id number] Oral 620 / 620 480 / 480 Anesthesia Amount 400 / 400 Output: Urine 900 / 900 Other: # Voids 3 # Bowel Movements 0 Narrative: GENERAL: No acute distress. SKIN: Focused skin assessment warm and dry. HEENT: PERRLA, EOMI. No scleral icterus or conjunctival pallor. No lid lag or facial droop. CARDIOVASCULAR: Regular rate and rhythm. No obvious murmurs to auscultation. No chest tenderness to palpation. RESPIRATORY: No obvious rhonchi or wheezing. Clear to auscultation. Breath sounds equal bilaterally. GASTROINTESTINAL: Abdomen soft, non-tender, nondistended. BS normal. MUSCULOSKELETAL: Extremities without clubbing, cyanosis, or edema. No obvious deformities. NEUROLOGICAL: Awake, alert and oriented x4. No focal neurologic deficits. Moving both upper and lower extremities spontaneously. PSYCHIATRIC: Appropriate mood and affect. Insight and judgment normal. Results - Labs CBC & Chem 7: 07/23/18 09:28 07/23/18 06:25 - Imaging Chest X-Ray 07/21/18 20:37 CONCLUSION: Minimal basilar atelectasis. No consolidation or effusion. Head CT 07/21/18 23:07 CONCLUSION: 1. Negative noncontrast CT brain. 2. Mild thickening of the dependent sphenoid sinuses. Pulmonary Perfusion Imaging 07/22/18 23:31 CONCLUSION: 1. Negative examination. - Procedures Stress test. Assessment and Plan - Assessment (1) Chest pain Code(s): R07.9 - Chest pain, unspecified Status: Acute (2) Hypertensive urgency Code(s): I16.0 - Hypertensive urgency Status: Acute - Plan 1. Hypertensive Urgency: BP 230's on arrival, on Clonidine 0.2mg bid and Lisinopril 40mg qd, compliant w/ medications. S/p Metoprolol 25mg po x1, NTG x2 and Morphine w/ minimal improvement, recommend to hold Cardene for now, s/p IV Hydralazine/Lopressor w/ significant improvement in BP, currently 150's, pt feeling much better. recommended to continue Home medicines. at this time added Vasotec she was vomiting earlier I think was not receiving her dosages of medicines. on Hydralazine and Vasotec PRN. today uncontrolled again with Systolic in 197, Lisinopril discussed with Pharmacy as per Maximum dose is 40 mg will continue present dose, increased Clonidine to 0.2 mg TID and add HCTZ 12.5 mg and following. 2. Atypical Chest pain, s/p Cardiac Cath for "small myocardial infarct" in 2011 , told she had "spasm", does not know if she had stent placed. troponin negative all sets, V/Q scan negative, treasury specialist following not impressed for Cardiac disease but asked for Stress test was negative. 3. Acute Gastritis suspected Famotidine and Carafate. probable EGD by GI specialist will be done at this time awaiting result 4. Anxiety and Depression, Bipolar disorder as per Psychiatry yesterday was recommended to discharge to Inpatient Psychiatric unit but patient refused and not candidate for Jones Act will discharge once patient's blood pressure controlled. Due to Lethargy yesterday removed Ativan continue her own medicines. DVT Prophylaxis: Heparin Code Status: Full Code. Discussed Condition With: Patient and nurse Miss Grover. Discharge Planning: Expected for tomorrow.
[2018-07-25] MEDS: Butalbital/APAP/Caff 50/325/40 MG Tablet PO PRN ×2 (17:06→23:21)
--- NOTE | 2018-07-25 17:52 | ECG ---
Date Performed: 07/21/2018 Time Performed: 20:48:59 PTAGE: 43 years EKG: Sinus rhythm MODERATE VOLTAGE CRITERIA FOR LVH, CONSIDER NORMAL VARIANT BORDERLINE ECG PREVIOUS TRACING : 05/25/2018 20.21 Since the previous tracing, no significant change noted DOCTOR: Derrell Carter Interpretating Date/Time 07/25/2018 17:51:19
[2018-07-25] MEDS ORDERED: Lisinopril 20 MG Tablet PO SCH (21:00)
[2018-07-25] MEDS: Gabapentin 300 MG Capsule PO SCH (22:24)
[2018-07-26] MEDS: Sod Chloride 0.9% Inj 1,000 ML IV.SIG SCH ×2 (02:08→22:47)
[2018-07-26] MEDS: Famotidine PF Inj 20 MG/2 ML Vial IV.PUSH SCH ×2 (03:24→16:19)
[2018-07-26] MEDS: Butalbital/APAP/Caff 50/325/40 MG Tablet PO PRN ×2 (05:41→13:16)
[2018-07-26] MEDS: Methocarbamol 500 MG Tablet PO SCH ×2 (08:20→20:53)
[2018-07-26] MEDS: Sucralfate 1 GM Tablet PO SCH ×4 (08:20→20:50)
[2018-07-26] MEDS: Lisinopril 20 MG Tablet PO SCH (08:21)
[2018-07-26] MEDS: Senna/Docusate Sodium 8.6/50 MG Tablet PO SCH ×2 (08:21→20:53)
[2018-07-26] MEDS: Gabapentin 100 MG Capsule PO SCH ×2 (08:22→20:50)
--- NOTE | 2018-07-26 16:08 | P.PN ---
Subjective Interval history: This is a pleasant 43 y/o Female with Anxiety disorder, depression, Fibromyalgia , Bipolar disorder, Hypertension, who came to ER with Chest pain her Troponin has been stable while this hospitalization her V/Q scan negative, but she continue with Chest pain will ask for cardiology consult, she had Cardiac Cath in the past, she was told she had a spasm, On arrival, noted to be significantly hypertensive w/ BP 237/127, HR 94. On Clonidine 0.2mg bid and Lisinopril 40mg qd, reports compliance w/ medications, at this time continue with Chest pain, Hypertensive Emergency improving with Vasotec IV. asked for thoracic medicine specialist consult, started on Carafate and Famotidine. continue liquid diet. 07/23: Seen in her bedroom, she was already evaluated by thoracic medicine specialist not impressed about the possibility or Cardiac disease but asked for Stress test. Seen by GI specialist due to nausea and vomit not improving, studying for probable EGD in am tomorrow. 07/24: Seen patient she is going for EGD at this time, stable no complaint, no nausea, vomit or diarrhea continue present care, her laboratory is stable, vital signs stable, Improving her headache, awaiting for Psychiatry specialist consult, if cleared by GI and Psych she will go home later today. her Stress test was negative. Discussed with Doctor gay Nair Diagnosis of Bipolar Disorder and Given her passive suicidal ideation, not having a relationship with a psychiatrist, not having a prescription at home , I recommend admission to [facility] unit once a bed is available. Placed Discharge Order to Inpatient Psychiatric unit when bed available. Medically clear to discharge to Inpatient Psychiatric unit 07/25: Patient stable she decided not to go to Inpatient Psychiatric unit, and after seen by Psychiatry today recommended for follow as outpatient, she is not candidate for Jones Act, but her blood pressure is uncontrolled again today, adjusted anti hypertensives and will follow for discharge. 07/26: seen in her bedroom, stable during the morning in the afternoon developed chest pain, ECG with no acute changes, and Troponin performed and was negative for ACS, no nausea, vomit or diarrhea. Physical Exam Vital signs: Vital Signs 07/25/18 17:00 07/25/18 17:38 07/25/18 19:00 Temperature Pulse Rate 77 92 H 66 Respiratory Rate 16 Blood Pressure Pulse Oximetry 07/25/18 20:00 07/25/18 21:00 07/25/18 22:00 Temperature 98.3 F Pulse Rate 70 74 85 Respiratory Rate 18 Blood Pressure 156/96 H Pulse Oximetry 97 07/25/18 23:00 07/26/18 00:00 07/26/18 01:00 Temperature 98.1 F Pulse Rate 64 62 62 Respiratory Rate 17 Blood Pressure 155/110 H Pulse Oximetry 97 07/26/18 02:00 07/26/18 03:00 07/26/18 04:00 Temperature 98.1 F Pulse Rate 68 59 L 61 Respiratory Rate 18 Blood Pressure 143/91 H Pulse Oximetry 96 07/26/18 05:00 07/26/18 06:00 07/26/18 06:16 Temperature Pulse Rate 58 L 57 L Respiratory Rate 17 Blood Pressure Pulse Oximetry 07/26/18 08:00 07/26/18 12:00 Temperature 98.4 F 98.1 F Pulse Rate 57 L 64 Respiratory Rate 17 18 Blood Pressure 162/100 H 162/98 H Pulse Oximetry 95 98 Intake & Output 07/25/18 07/26/18 07/26/18 18:59 06:59 18:59 Intake Total 2220 / 2220 240 / 240 Output Total 1000 / 1000 Balance 2220 / 2220 -760 / -760 Weight 77 kg Intake: IV 1000 / 1000 NS Inj 1,000 ML @ 100 mls/hr IV 1000 / 1000 .SIG .Q10H DANIA Rx#:[id number] Oral 1220 / 1220 240 / 240 Output: Urine 1000 / 1000 Other: # Voids 4 Narrative: GENERAL: No acute distress. SKIN: Focused skin assessment warm and dry. HEENT: PERRLA, EOMI. No scleral icterus or conjunctival pallor. No lid lag or facial droop. CARDIOVASCULAR: Regular rate and rhythm. No obvious murmurs to auscultation. No chest tenderness to palpation. RESPIRATORY: No obvious rhonchi or wheezing. Clear to auscultation. Breath sounds equal bilaterally. GASTROINTESTINAL: Abdomen soft, non-tender, nondistended. BS normal. MUSCULOSKELETAL: Extremities without clubbing, cyanosis, or edema. No obvious deformities. NEUROLOGICAL: Awake, alert and oriented x4. No focal neurologic deficits. Moving both upper and lower extremities spontaneously. PSYCHIATRIC: Appropriate mood and affect. Insight and judgment normal. Results - Labs CBC & Chem 7: 07/23/18 09:28 07/23/18 06:25 Laboratory Results - last 24 hr 07/26/18 13:35 Troponin I Less than 0.02 L - Imaging Chest X-Ray 07/21/18 20:37 CONCLUSION: Minimal basilar atelectasis. No consolidation or effusion. Head CT 07/21/18 23:07 CONCLUSION: 1. Negative noncontrast CT brain. 2. Mild thickening of the dependent sphenoid sinuses. . Pulmonary Perfusion Imaging 07/22/18 23:31 CONCLUSION: 1. Negative examination. - Procedures Stress test. Assessment and Plan - Assessment (1) Chest pain Code(s): R07.9 - Chest pain, unspecified Status: Acute (2) Hypertensive urgency Code(s): I16.0 - Hypertensive urgency Status: Acute - Plan 1. Hypertensive Urgency: BP 230's on arrival, on Clonidine 0.2mg bid and Lisinopril 40mg qd, compliant w/ medications. S/p Metoprolol 25mg po x1, NTG x2 and Morphine w/ minimal improvement, recommend to hold Cardene for now, s/p IV Hydralazine/Lopressor w/ significant improvement in BP, currently 150's, pt feeling much better. recommended to continue Home medicines. at this time added Vasotec she was vomiting earlier I think was not receiving her dosages of medicines. on Hydralazine and Vasotec PRN. today uncontrolled again with Systolic in 197, Lisinopril discussed with Pharmacy as per Maximum dose is 40 mg will continue present dose, increased Clonidine to 0.2 mg TID and add HCTZ 12.5 mg and following. 07/26: Continue with uncontrolled blood pressure increased clonidine to 0.3 mg TID and Amlodipine to 5 mg daily will follow if better control in am will discharge home. 2. Atypical Chest pain, s/p Cardiac Cath for "small myocardial infarct" in 2011 , told she had "spasm", does not know if she had stent placed. troponin negative all sets, V/Q scan negative, thoracic medicine specialist following not impressed for Cardiac disease but asked for Stress test was negative. 07/26: new chest pain today, asked for new ECG no acute changes and troponin level WNL. 3. Acute Gastritis suspected Famotidine and Carafate. Status post EGD findings include LA class B esophagitis with multiple biopsies taken and mild antral gastropathy . Patient is to remain on PPI, follow with GI specialist on Discharge. 4. Anxiety and Depression, Bipolar disorder as per Psychiatry yesterday was recommended to discharge to Inpatient Psychiatric unit but patient refused and not candidate for Jones Act will discharge once patient's blood pressure controlled. DVT Prophylaxis: Heparin Code Status: Full code. Discussed Condition With: Patient and Nurse Miss Gallo and ARTUR. Discharge Planning: Expected for tomorrow if blood pressure in better control.
[2018-07-26] MEDS: amLODIPine 5 MG Tablet PO SCH (17:06)
[2018-07-26] MEDS: Gabapentin 300 MG Capsule PO SCH (20:50)
[2018-07-27] MEDS: Famotidine PF Inj 20 MG/2 ML Vial IV.PUSH SCH ×2 (03:58→16:08)
[2018-07-27] MEDS: Methocarbamol 500 MG Tablet PO SCH (09:41)
[2018-07-27] MEDS: Sucralfate 1 GM Tablet PO SCH ×3 (09:42→16:09)
[2018-07-27] MEDS: amLODIPine 5 MG Tablet PO SCH (09:42)
[2018-07-27] MEDS: Senna/Docusate Sodium 8.6/50 MG Tablet PO SCH (09:42)
[2018-07-27] MEDS: Lisinopril 20 MG Tablet PO SCH (09:42)
[2018-07-27] MEDS: Gabapentin 100 MG Capsule PO SCH (09:42)
--- NOTE | 2018-07-27 13:31 | P.DS ---
Date of admission: 07/22/18 00:57 Primary care physician: No Primary Care Physician Brief History from admission: This is a 43-year-old female with a PMH of Anxiety, Depression, Fibromyalgia, Bipolar Disorder and HTN who presented to the ER with complaints of chest pain x2 hrs prior to arrival. The patient was also found to have accelerated hypertension and was subsequently admitted for chest pain workup. DS: Medications - Discharge Medications Prescriptions: amlodipine [Norvasc] 5 mg PO DAILY #30 tab clonidine HCl 0.3 mg PO Q8HR #90 tab hydrochlorothiazide 12.5 mg PO DAILY #30 cap omeprazole 40 mg PO DAILY #30 cap pravastatin 40 mg PO DAILY #30 tab DS: Summary Hospital Course: This patient is a 43-year-old -[place] female who has a diagnosis of hypertension, dyslipidemia, anxiety, depression, bipolar disorder. And gastroesophageal reflux disease. The patient presented to our emergency department with complaints of left-sided chest pain that began while she was riding in a car. She also had a headache during that time and nausea and vomiting. She was subsequently admitted for evaluation of epigastric pain and chest pain. During the hospitalization the patient also had uncontrolled hypertension. 1. Chest pain likely secondary to gastritis 2. Esophagitis The patient was evaluated in the emergency department. EKG showed normal sinus rhythm no acute ST segment or T wave changes. Chest x-ray was done which did not show any significant findings. 3 sets of cardiac enzymes and troponins are negative. Cardiology was consulted to evaluate the patient. Recommendations were for the patient to have a stress test. Stress test was done which was negative. GI was also consulted to evaluate the patient. The patient was started on Protonix. Patient underwent EGD which showed class B esophagitis and multiple biopsies were taken. Recommendations were for the patient to continue a PPI. She should follow-up outpatient in the GI clinic with for results of the biopsies. The patient is now chest pain-free without any complaints of chest pain or abdominal pain. She will be discharged home today. A prescription for a PPI was given to the patient. A referral to [facility] and instruction on how to obtain a primary care doctor were given to the patient. 3. Accelerated hypertension During hospitalization the patient was also found to have uncontrolled hypertension. On arrival she had a systolic blood pressure above 200. Her blood pressure medication regimen was adjusted while in-house and is currently under control. Her dose of clonidine was increased, amlodipine, and hydrochlorothiazide were added to the patient's medication regimen. She was advised to take her blood pressure and write it down at home. The patient states she does have a blood pressure cuff at home. She should present the blood pressure log to her primary care doctor and her blood pressure medications can be adjusted as needed. Currently her systolic blood pressures in the 120s after the medication adjustments. She will be discharged home today. 4. Anxiety/depression/bipolar disorder. Patient can continue her home medications. After evaluation by her primary care doctor she should be referred to psychiatry to have regular psychiatric care. She was evaluated by our psychiatrist while inpatient and recommendations from them were to have the patient transferred to the psych unit after she is medically cleared. The patient was medically cleared however she now does not want to be transferred to a psych unit and is requesting to go home. She does not have any suicidal ideation, no desire to harm herself nor anybody else. She was advised to follow-up with a primary care doctor and she should also have regular psychiatric care. 5. Dyslipidemia Patient's cholesterol was also found to be elevated. She will be started on a statin. Benefits and side effects of all the medications that the patient was started on prior to discharge were discussed with the patient. She agrees to starting the medication. - Time Spent with Patient Total time spent providing and/or coordinating discharge services: Greater than 30 minutes - Quality: VTE Deep Vein Thrombosis/Pulmonary Embolism Present on Admission: No Exam Vital signs: Vital Signs 07/26/18 14:00 07/26/18 15:00 07/26/18 16:00 Temperature Pulse Rate 68 57 L 60 Respiratory Rate Blood Pressure Pulse Oximetry 07/26/18 16:10 07/26/18 17:00 07/26/18 18:00 Temperature Pulse Rate 61 62 Respiratory Rate Blood Pressure 160/82 H Pulse Oximetry 07/26/18 19:00 07/26/18 19:33 07/26/18 20:00 Temperature 98.2 F Pulse Rate 61 61 61 Respiratory Rate 16 Blood Pressure 128/83 Pulse Oximetry 95 07/26/18 21:00 07/26/18 22:00 07/26/18 23:00 Temperature Pulse Rate 57 L 63 63 Respiratory Rate Blood Pressure Pulse Oximetry 07/27/18 00:00 07/27/18 01:00 07/27/18 02:00 Temperature 97.5 F L Pulse Rate 58 L 60 62 Respiratory Rate 18 Blood Pressure 127/85 Pulse Oximetry 97 07/27/18 03:00 07/27/18 04:00 07/27/18 05:00 Temperature 98.2 F Pulse Rate 61 60 57 L Respiratory Rate 16 Blood Pressure 128/84 Pulse Oximetry 96 07/27/18 06:00 07/27/18 07:00 07/27/18 08:00 Temperature 98.4 F Pulse Rate 68 68 64 Respiratory Rate 16 Blood Pressure 109/78 Pulse Oximetry 100 Intake & Output 07/26/18 07/27/18 07/27/18 18:59 06:59 18:59 Intake Total 760 / 760 240 / 240 Output Total 400 / 400 1050 / 1050 Balance 360 / 360 -810 / -810 Weight 77.2 kg Intake: Oral 760 / 760 240 / 240 Output: Urine 400 / 400 1050 / 1050 Other: Date of Last Bowel Movement 07/26/18 07/26/18 Narrative: General patient in no acute distress, no chest pain, no shortness of breath HEENT extraocular movements are intact, clear oropharyngeal mucosa, no JVD Cardiovascular S1-S2 audible, RRR, no murmurs rubs or gallops, no chest pain Respiratory clear to auscultation bilaterally Abdomen soft, nontender, nondistended, normal bowel sounds Extremities no edema 2+ distal pulses in bilateral upper and lower extremities Neuro cranial nerves II through XII intact Results Procedures completed during hospitalization: Stress test. EGD Completed studies during hospitalization: Pending at discharge 07/24/18 10:04 Surgical [PTH] Routine Labs on day of discharge: Labs from last 24 hours 07/26/18 13:35 Troponin I Less than 0.02 L - Impressions ITS Impressions Chest X-Ray 07/21/18 20:37 CONCLUSION: Minimal basilar atelectasis. No consolidation or effusion. Head CT 07/21/18 23:07 CONCLUSION: 1. Negative noncontrast CT brain. 2. Mild thickening of the dependent sphenoid sinuses. . Pulmonary Perfusion Imaging 07/22/18 23:31 CONCLUSION: 1. Negative examination. Discharge Plan - Discharge Disposition Patient Disposition: [facility] To [facility] Facility - Discharge Condition Condition: Stable - Discharge Order Discharge Orders: Discharge Order (Routine); Ordered 07/27/18 Ordered By: Pastor Vale - Discharge Details Anticipated Discharge Date: 07/24/18 Discharge Comment: Patient Medically clear for Discharge to Inpatient Psychiatric Unit - Physicians Team Primary Care Provider: Primary Care Hedy Guerrero Attending Provider: Pastor Vale Other Providers: Sherman Bagley MD ; Paul Swanson MD ; Dalton Mittal DO
--- NOTE | 2018-07-27 15:03 | ECG ---
Date Performed: 07/26/2018 Time Performed: 13:31:36 PTAGE: 43 years EKG: Sinus rhythm . Poor R wave progression - probable normal variant Borderline ECG NO PREVIOUS TRACING DOCTOR: Sung Rhoades Interpretating Date/Time 07/27/2018 14:59:06
== END 2018-07-27 17:56 | disposition home or self-care (01) ==
LOC: NEDA 20:19 → NEPE 20:19 → HCIS 07-22 02:10
PROVIDERS: ADMIT Hospitalist; ATTEND Hospitalist
PROC: PANENDO (2018-07-24 09:42)